=== PATIENT | female | born 1935 | race Caucasian/White ===

== ENCOUNTER 2018-01-25 16:14 | Emergency (ER) | payer MEDICARE, MEDICAID ==
[~2018-01-25] VITALS: Ht 162.6 cm; Wt 82.0 kg
[~2018-01-25 16:14] MED LIST: ASPI81TA52 PO; BUDE10.22 INH; BUPR150T8 PO; CHOL500049 PO; DOCU-28 PO; FERR325T28 PO; FLUO20CA39 PO; GABA-532 PO; LOSA25TA96 PO; MAGN400C PO; MULT-342 PO; NITR0.4T48 SL; OMEG-166 PO; OXYC5CAP19 PO; PRAM0.5T3 PO; RANO500T3 PO; SYN0.088T PO; TERI2.4P SUBCUT; ZOLP5TAB8 PO; [UNRECOGNIZED DRUG - OTHER] PO
[2018-01-25] MEDS ORDERED: ondansetron 4mg rapidly disintigrating tab PO ONE (17:10)
[2018-01-25] MEDS ORDERED: morphine 10mg/ml inj. IM ONE ×2 (17:10→17:55)
[2018-01-25 19:23] VITALS: BP 97/54
== END 2018-01-25 21:20 | disposition home or self-care (01) ==
LOC: ER 16:14
DX: G89.29 Other chronic pain (principal); M25.551 Pain in right hip; I10 Essential (primary) hypertension; J44.9 Chronic obstructive pulmonary disease, unspecified; Z86.711 Personal history of pulmonary embolism; Z98.890 Other specified postprocedural states; Z88.8 Allergy status to other drugs, medicaments and biological substances; Z79.82 Long term (current) use of aspirin; Z79.899 Other long term (current) drug therapy
CPT/HCPCS: 93005; 96372; 99284; J2270

== ENCOUNTER 2018-01-29 08:43 | Inpatient (IN) | payer MEDICARE, MEDICAID ==
[~2018-01-29] VITALS: Ht 162.6 cm; Wt 91.7 kg
[2018-01-29] MEDS ORDERED: morphine 4 MG/ML inj SYRINge IV ONE (08:55)
[2018-01-29] MEDS ORDERED: ondansetron/PF 4mg/2ml inj IV ONE (08:55)
[2018-01-29] MEDS ORDERED: ONDA4TAB9 PO (11:40)
[2018-01-29] MEDS ORDERED: HYDR-3965 PO (11:40)
[2018-01-29 12:45] LABS: BASOPHILS % (AUTO) 0.1 % (0-1); EOSINOPHILS # (AUTO) 0.3 X10'3 (0-0.9); EOSINOPHILS % (AUTO) 2.5 % (0-6); HEMOGLOBIN 12.7 g/dl (12.0-16.0); LYMPHOCYTES # (AUTO) 0.9 X10'3 (1.1-4.8); LYMPHOCYTES % (AUTO) 6.9 % (21-51); MEAN CORPUSCULAR HEMOGLOBIN 28.9 PG (27.0-31.0); MEAN CORPUSCULAR HGB CONC 32.6 % (33.0-36.5); MEAN CORPUSCULAR VOLUME 88.7 FL (78-98); MEAN PLATELET VOLUME 6.8 FL (7.4-10.4); MONOCYTES # (AUTO) 0.6 X10'3 (0-0.9); MONOCYTES % (AUTO) 4.7 % (2-12); NEUTROPHILS # (AUTO) 11.6 X10'3 (1.8-7.7); NEUTROPHILS % (AUTO) 85.8 % (42-75); PLATELET COUNT 316 X10'3 (140-440); RED BLOOD COUNT 4.39 X10'6 (4.20-5.60); RED CELL DISTRIBUTION WIDTH 15.9 % (11.5-14.5); WHITE BLOOD COUNT 13.6 X10'3 (4.5-11.0)
[2018-01-29 13:07] LABS: ALANINE AMINOTRANSFERASE 20 U/L (12-78); ALBUMIN 2.1 G/DL (3.4-5.0); ALBUMIN/GLOBULIN RATIO 0.4 (1.1-1.5); ALKALINE PHOSPHATASE 96 IU/L (46-116); ANION GAP 12 (8-16); ASPARTATE AMINO TRANSFERASE 21 U/L (10-37); BILIRUBIN,TOTAL 0.3 MG/DL (0.1-1.0); BLOOD UREA NITROGEN 85 MG/DL (7-18); BUN/CREATININE RATIO 29.6 (6.6-38.0); CALCIUM 9.3 MG/DL (8.5-10.1); CHLORIDE 94 MMOL/L (99-107); CREATININE 2.87 MG/DL (0.40-0.90); GLUCOSE 86 MG/DL (70-104); POTASSIUM 4.8 MMOL/L (3.5-5.1); SODIUM 130 MMOL/L (135-145); TOTAL PROTEIN 7.5 G/DL (6.4-8.2); eGFR 16 ML/MIN
[2018-01-29] MEDS ORDERED: magnesium hydroxide 30ml (MOM) UD suspension PO PRN (13:40)
[2018-01-29] MEDS ORDERED: potassium Cl 20 mEq SR tablet PO PRN ×2 (13:40)
[2018-01-29] MEDS ORDERED: mag hydrox/Alum hydrox/simeth 30ml oral suspension PO PRN (13:40)
[2018-01-29] MEDS ORDERED: magnesium 4gm in 100ml NS 100 ML IV PRN (13:40)
[2018-01-29] MEDS ORDERED: potassium Cl 40MEQ/NS 500ml 500 ML IV PRN ×2 (13:40)
[2018-01-29] MEDS ORDERED: magnesium 1gm/100ml D5W IVPB 100 ML IV PRN (13:40)
[2018-01-29] MEDS: HYDROmorphone 1 mg/ml syringe IV PRN ×3 (15:08→22:56)
[2018-01-29] MEDS: normal saline 1000ml 1,000 ML IV SCH (15:15)
[2018-01-29 16:13] LABS: CLARITY,URINE SLIGHTLY CLOUDY (Clear); COLOR,URINE YELLOW (Yellow); GLUCOSE, URINE NEGATIVE (Neg); KETONES,URINE NEGATIVE (Neg); LEUKOCYTE ESTERASE ,URINE NEGATIVE (Neg); NITRITES, URINE NEGATIVE (Neg); OCCULT BLOOD,URINE NEGATIVE (Neg); PH,URINE 5.5 (4.8-8.0); PROTEIN,URINE TRACE mg/dl (Neg); UROBILINOGEN,URINE 0.2 E.U/dL (0.2-1.0)
[2018-01-29 16:14] LABS: UA COLLECTION TYPE FOLEY CATH
[2018-01-29 16:23] LABS: BACTERIA,URINE FEW /HPF (Neg); RBC,URINE NONE SEEN /HPF (0-2)
[2018-01-29 16:24] LABS: CELLULAR CAST 0-4 /LPF (NEGATIVE); SQUAMOUS EPITHELIAL CELL,UR FEW /LPF (FEW); WBC CLUMPS,URINE FEW /HPF (NEGATIVE)
[2018-01-29] MEDS ORDERED: non-formulary drug (Cholecalciferol (Vitamin D3) (Vitamin D3) 1 CAP) PO SCH (18:55)
[2018-01-29] MEDS ORDERED: nitroGLYCERIN 0.4mg SUBLingual tab SL PRN (18:55)
[2018-01-29] MEDS ORDERED: docusate sod 100mg capsule PO PRN (18:55)
[2018-01-29] MEDS ORDERED: non-formulary drug (Budesonide/Formoterol Fumarate (Symbicort 80-4.5 Mcg Inhaler) 2 PUFFS) INH SCH (20:00)
[2018-01-29] MEDS ORDERED: PRAMIPEXOLE DI HCL 0.5 MG PO SCH (20:00)
[2018-01-29] MEDS: pramipexole 0.25mg tablet PO SCH (20:54)
[2018-01-29] MEDS: heparin, porcine 5000 units/ml vial SQ SCH (20:55)
[2018-01-29] MEDS: buPROPion SR 150mg tablet PO SCH (20:55)
[2018-01-29] MEDS: ferrous sulfate 325mg tablet PO SCH (20:55)
[2018-01-29] MEDS: ranolazine 500mg SR tablet (Q12H) PO SCH (20:56)
[2018-01-29] MEDS: losartan 50mg tablet PO SCH (21:00)
[2018-01-29 22:00] VITALS: BP 106/46
[2018-01-29] MEDS: BUDESONIDE 0.25 MG/2 ML AMPUL.NEB IH SCH (23:24)
[2018-01-29] MEDS: ipratropium/albuterol 3ml nebule NEB PRN (23:25)
[2018-01-30] MEDS ORDERED: naloxone 0.4 mg/ml inj ONE (00:44)
[2018-01-30] MEDS ORDERED: naloxone 0.4 mg/ml inj IV ONE (00:45)
[2018-01-30 00:51] LABS: ABG BASE EXCESS -6.5 mmol/L (-2.0-3.0); ABG HCO3 21.3 mmol/L (22.0-26.0); ABG OXYGEN SATURATION 88.8 % (95-98); ABG PCO2 (T) 50.5 mmHg (32.0-45.0); ABG PO2 (T) 60.5 mmHg (83-108); FCOHb 0.7 % (0.5-1.5); FLOW 6 L/min; FMetHb 0.2 % (0.3-1.12); PATIENT TEMPERATURE 36.5; TOTAL HEMOGLOBIN 12.8 G/dl (12.0-16.0)
[2018-01-30] MEDS: normal saline 1000ml 1,000 ML IV SCH ×2 (00:54→09:36)
[2018-01-30 03:00] VITALS: BP 102/48
[2018-01-30] MEDS: HYDROmorphone 1 mg/ml syringe IV PRN ×6 (03:33→20:20)
[2018-01-30 04:01] LABS: ABG BASE EXCESS -4.6 mmol/L (-2.0-3.0); ABG HCO3 22.1 mmol/L (22.0-26.0); ABG OXYGEN SATURATION 94.9 % (95-98); ABG PCO2 (T) 47.3 mmHg (32.0-45.0); ABG PH (T) 7.287 (7.350-7.450); ABG PO2 (T) 78.6 mmHg (83-108); FCOHb 0.4 % (0.5-1.5); FMetHb 0.1 % (0.3-1.12); FO2Hb 94.4 % (94-100); MINUTE VOLUME 8 L/min; PATIENT TEMPERATURE 36.9; RESPIRATORY RATE 14 b/min; RESPIRATORY RATE (OBSERVED) 13 b/min; TIDAL VOLUME 517 mL; TOTAL HEMOGLOBIN 12.3 G/dl (12.0-16.0)
[2018-01-30 06:36] LABS: BASOPHILS % (AUTO) 0.1 % (0-1); EOSINOPHILS # (AUTO) 0.1 X10'3 (0-0.9); EOSINOPHILS % (AUTO) 0.7 % (0-6); HEMATOCRIT 34.3 % (35.0-45.0); HEMOGLOBIN 11.2 g/dl (12.0-16.0); LYMPHOCYTES # (AUTO) 0.6 X10'3 (1.1-4.8); LYMPHOCYTES % (AUTO) 4.2 % (21-51); MEAN CORPUSCULAR HEMOGLOBIN 28.9 PG (27.0-31.0); MEAN CORPUSCULAR HGB CONC 32.6 % (33.0-36.5); MEAN CORPUSCULAR VOLUME 88.8 FL (78-98); MEAN PLATELET VOLUME 6.4 FL (7.4-10.4); MONOCYTES # (AUTO) 0.7 X10'3 (0-0.9); MONOCYTES % (AUTO) 4.7 % (2-12); NEUTROPHILS # (AUTO) 12.6 X10'3 (1.8-7.7); NEUTROPHILS % (AUTO) 90.3 % (42-75); PLATELET COUNT 308 X10'3 (140-440); RED BLOOD COUNT 3.86 X10'6 (4.20-5.60); RED CELL DISTRIBUTION WIDTH 15.6 % (11.5-14.5); WHITE BLOOD COUNT 13.9 X10'3 (4.5-11.0)
[2018-01-30 06:55] LABS: ANISOCYTOSIS 1+; GIANT PLATELET FEW; PLATELET ESTIMATE NORMAL; TOTAL CELLS COUNTED 100
[2018-01-30 06:56] LABS: TOXIC GRANULATION 1+
[2018-01-30 06:58] LABS: ALANINE AMINOTRANSFERASE 14 U/L (12-78); ALBUMIN 1.8 G/DL (3.4-5.0); ALBUMIN/GLOBULIN RATIO 0.4 (1.1-1.5); ALKALINE PHOSPHATASE 72 IU/L (46-116); ANION GAP 10 (8-16); ASPARTATE AMINO TRANSFERASE 15 U/L (10-37); BILIRUBIN,TOTAL 0.3 MG/DL (0.1-1.0); BLOOD UREA NITROGEN 82 MG/DL (7-18); BUN/CREATININE RATIO 35.5 (6.6-38.0); CALCIUM 8.5 MG/DL (8.5-10.1); CHLORIDE 101 MMOL/L (99-107); CHOL/HDL RATIO 4.8 (0.00-4.99); CHOLESTEROL 110 MG/DL (0-200); CREATININE 2.31 MG/DL (0.40-0.90); GLUCOSE 89 MG/DL (70-104); HDL CHOLESTEROL 23 MG/DL (35-60); LDL CHOLESTEROL 65 MG/DL (50-100); MAGNESIUM 2.2 MG/DL (1.5-2.4); POTASSIUM 4.7 MMOL/L (3.5-5.1); SODIUM 133 MMOL/L (135-145); TOTAL CARBON DIOXIDE 22.1 MMOL/L (24-32); TOTAL PROTEIN 6.4 G/DL (6.4-8.2); TRIGLYCERIDES 131 MG/DL (20-135); eGFR 20 ML/MIN
[2018-01-30] MEDS: levoTHYROXINE 100mcg tablet PO SCH (07:21)
[2018-01-30] MEDS: multivitamins, therapeutics tablet PO SCH (07:21)
[2018-01-30] MEDS: ferrous sulfate 325mg tablet PO SCH ×2 (07:21→20:12)
[2018-01-30] MEDS: heparin, porcine 5000 units/ml vial SQ SCH ×2 (07:21→20:13)
[2018-01-30] MEDS: pramipexole 0.25mg tablet PO SCH ×2 (07:22→20:12)
[2018-01-30] MEDS: ranolazine 500mg SR tablet (Q12H) PO SCH ×2 (07:22→20:13)
[2018-01-30] MEDS: BUDESONIDE 0.25 MG/2 ML AMPUL.NEB IH SCH ×2 (07:35→21:00)
[2018-01-30] MEDS: albuterol 2.5 MG/3 ML nebule NEB SCH ×4 (07:35→21:00)
[2018-01-30] MEDS ORDERED: non-formulary drug (Multivitamins (Multi-Day Vitamin) 1 EACH) PO SCH (08:00)
[2018-01-30] MEDS: K and/or MAG REPLACEMENT MC SCH (08:00)
[2018-01-30] MEDS ORDERED: OMEGA-3/DHA/EPA/FISH OIL 1 EACH CAPSULE.DR PO SCH (08:00)
[2018-01-30 15:00] VITALS: BP 154/60
[2018-01-30] MEDS ORDERED: HYDROmorphone 1 mg/ml syringe IV STA (15:43)
[2018-01-30] MEDS ORDERED: LORazepam 2 mg/ml vial IV STA (15:51)
[2018-01-30] MEDS ORDERED: normal saline 1000ml 1,000 ML IV SCH (15:55)
[2018-01-30] MEDS ORDERED: vancomycin/NS 1 GM ADD-VANTAGE 250 ML IV ONE (18:00)
[2018-01-30 19:00] VITALS: BP 135/59
[2018-01-30] MEDS: buPROPion SR 150mg tablet PO SCH (22:24)
[2018-01-30] MEDS: losartan 50mg tablet PO SCH (22:27)
[2018-01-30] MEDS: cefepime 2g/NS 100ml ADVANTAGE 100 ML IV SCH (22:32)
[2018-01-30 23:00] VITALS: BP 144/62
[2018-01-31] VITALS (16 sets, daily range): BP systolic 118–220; BP diastolic 52–107
[2018-01-31] MEDS: HYDROmorphone 1 mg/ml syringe IV PRN ×4 (02:23→16:12)
[2018-01-31 03:03] LABS: UREA NITROGEN 24HR,URINE 19.6 GM/24HR (7-20)
[2018-01-31 05:34] LABS: BASOPHILS % (AUTO) 0 % (0-1); EOSINOPHILS # (AUTO) 0.1 X10'3 (0-0.9); EOSINOPHILS % (AUTO) 0.8 % (0-6); HEMATOCRIT 34.7 % (35.0-45.0); HEMOGLOBIN 11.6 g/dl (12.0-16.0); LYMPHOCYTES # (AUTO) 0.5 X10'3 (1.1-4.8); LYMPHOCYTES % (AUTO) 3.5 % (21-51); MEAN CORPUSCULAR HEMOGLOBIN 29.3 PG (27.0-31.0); MEAN CORPUSCULAR HGB CONC 33.3 % (33.0-36.5); MEAN CORPUSCULAR VOLUME 88.1 FL (78-98); MEAN PLATELET VOLUME 6.2 FL (7.4-10.4); MONOCYTES # (AUTO) 0.4 X10'3 (0-0.9); MONOCYTES % (AUTO) 3.2 % (2-12); NEUTROPHILS # (AUTO) 12.7 X10'3 (1.8-7.7); NEUTROPHILS % (AUTO) 92.5 % (42-75); PLATELET COUNT 280 X10'3 (140-440); RED BLOOD COUNT 3.94 X10'6 (4.20-5.60); RED CELL DISTRIBUTION WIDTH 15.3 % (11.5-14.5); WHITE BLOOD COUNT 13.7 X10'3 (4.5-11.0)
[2018-01-31 05:46] LABS: ALANINE AMINOTRANSFERASE 15 U/L (12-78); ALBUMIN 1.7 G/DL (3.4-5.0); ALBUMIN/GLOBULIN RATIO 0.4 (1.1-1.5); ALKALINE PHOSPHATASE 76 IU/L (46-116); ANION GAP 9 (8-16); ASPARTATE AMINO TRANSFERASE 14 U/L (10-37); BILIRUBIN,TOTAL 0.4 MG/DL (0.1-1.0); BLOOD UREA NITROGEN 42 MG/DL (7-18); CHLORIDE 106 MMOL/L (99-107); CREATININE 0.84 MG/DL (0.40-0.90); GLUCOSE 113 MG/DL (70-104); MAGNESIUM 1.7 MG/DL (1.5-2.4); POTASSIUM 4.1 MMOL/L (3.5-5.1); SODIUM 138 MMOL/L (135-145); TOTAL CARBON DIOXIDE 23.3 MMOL/L (24-32); TOTAL PROTEIN 6.3 G/DL (6.4-8.2); eGFR 65 ML/MIN
[2018-01-31 06:47] LABS: BANDS% (MANUAL) 8 % (0-10); EOSINOPHILS % (MANUAL) 1 % (0-6); LYMPHOCYTES % (MANUAL) 2 % (21-51); MONOCYTES % (MANUAL) 6 % (2-12); NEUTROPHILS % (MANUAL) 83 % (42-75); PLATELET ESTIMATE NORMAL; TOTAL CELLS COUNTED 100
[2018-01-31 06:48] LABS: TOXIC GRANULATION 1+
[2018-01-31] MEDS: K and/or MAG REPLACEMENT MC SCH (08:00)
[2018-01-31] MEDS: normal saline 1000ml 1,000 ML IV SCH (08:20)
[2018-01-31] MEDS: BUDESONIDE 0.25 MG/2 ML AMPUL.NEB IH SCH ×2 (08:25→19:25)
[2018-01-31] MEDS: albuterol 2.5 MG/3 ML nebule NEB SCH ×4 (08:26→19:26)
[2018-01-31] MEDS: ferrous sulfate 325mg tablet PO SCH ×2 (08:55→20:00)
[2018-01-31] MEDS: multivitamins, therapeutics tablet PO SCH (08:55)
[2018-01-31] MEDS: pramipexole 0.25mg tablet PO SCH ×2 (08:55→20:00)
[2018-01-31] MEDS: levoTHYROXINE 100mcg tablet PO SCH (08:55)
[2018-01-31] MEDS: heparin, porcine 5000 units/ml vial SQ SCH (08:55)
[2018-01-31] MEDS: ranolazine 500mg SR tablet (Q12H) PO SCH ×2 (08:55→20:00)
[2018-01-31] MEDS: cefepime 2g/NS 100ml ADVANTAGE 100 ML IV SCH (08:56)
[2018-01-31] MEDS ORDERED: ringers solution, lacted 1,000 ML IV ONE ×2 (09:39→15:32)
[2018-01-31] MEDS: vancomycin inj 1,250 MG in normal saline 250ml IV soln 250 ML IV SCH ×2 (10:15→21:22)
[2018-01-31 14:53] LABS: BASOPHILS % (AUTO) 0 % (0-1); EOSINOPHILS # (AUTO) 0.1 X10'3 (0-0.9); EOSINOPHILS % (AUTO) 0.6 % (0-6); LYMPHOCYTES # (AUTO) 0.5 X10'3 (1.1-4.8); LYMPHOCYTES % (AUTO) 3.1 % (21-51); MEAN CORPUSCULAR HEMOGLOBIN 29.2 PG (27.0-31.0); MEAN CORPUSCULAR HGB CONC 33.3 % (33.0-36.5); MEAN CORPUSCULAR VOLUME 87.6 FL (78-98); MEAN PLATELET VOLUME 5.9 FL (7.4-10.4); MONOCYTES # (AUTO) 0.5 X10'3 (0-0.9); MONOCYTES % (AUTO) 2.8 % (2-12); NEUTROPHILS # (AUTO) 15.2 X10'3 (1.8-7.7); NEUTROPHILS % (AUTO) 93.5 % (42-75); PRE OP HEMATOCRIT 35.5 % (35.0-45.0); PRE OP HEMOGLOBIN 11.8 g/dL (12.0-16.0); PRE OP PLATELET COUNT 303 X10'3 (140-440); RED BLOOD COUNT 4.05 X10'6 (4.20-5.60); RED CELL DISTRIBUTION WIDTH 15.4 % (11.5-14.5)
[2018-01-31 15:02] LABS: INR 1.3 INR; PARTIAL THROMBOPLASTIN TIME 32 SECONDS (22-32); PROTHROMBIN TIME 13.2 SECONDS (9.0-12.0)
[2018-01-31 15:03] LABS: ALBUMIN 1.7 G/DL (3.4-5.0); BLOOD UREA NITROGEN 29 MG/DL (7-18); BUN/CREATININE RATIO 40.3 (6.6-38.0); CALCIUM 9.2 MG/DL (8.5-10.1); CHLORIDE 105 MMOL/L (99-107); CREATININE 0.72 MG/DL (0.40-0.90); PRE OP ANION GAP 9 (8-16); PRE OP GLUCOSE 102 MG/DL (70-104); PRE OP POTASSIUM 3.7 MMOL/L (3.4-5.1); PRE OP SODIUM 139 MMOL/L (135-145); TOTAL CARBON DIOXIDE 25.1 MMOL/L (24-32); eGFR 78 ML/MIN
[2018-01-31] MEDS ORDERED: MIDAZolam 1mg/ml 10ml vial ONE (16:39)
[2018-01-31] MEDS ORDERED: fentaNYL /PF 50mcg/ml 5ml ampule ONE (16:40)
[2018-01-31] MEDS ORDERED: etomidate 2mg/ml inj. ONE (16:41)
[2018-01-31] MEDS ORDERED: rocuronium 10mg/ml inj IV ONE (16:44)
[2018-01-31] MEDS ORDERED: LIDOcaine 1%/PF 5ML 10 MG/ML VIAL ONE (16:51)
[2018-01-31] MEDS ORDERED: ringers solution, lacted 1,000 ML IV SCH ×2 (17:03→19:13)
[2018-01-31] MEDS ORDERED: morphine 4 MG/ML inj SYRINge IV PRN ×2 (17:05)
[2018-01-31] MEDS ORDERED: ondansetron/PF 4mg/2ml inj IV PRN ×2 (17:05→19:15)
[2018-01-31] MEDS ORDERED: FENTANYL-0.9 % NACL/PF 100 ML IV PRN (17:05)
[2018-01-31] MEDS ORDERED: fentaNYL/PF 50MCG/1 ML 2ML syringe IV PRN ×4 (17:05→19:15)
[2018-01-31] MEDS ORDERED: sevoflurane 250ml liquid IH ONE (17:20)
[2018-01-31] MEDS ORDERED: dexamethasone sod phosphate 4mg/ml inj. ONE (18:14)
[2018-01-31] MEDS ORDERED: ondansetron/PF 4mg/2ml inj ONE (18:15)
[2018-01-31] MEDS ORDERED: vancomycin/NS 1 GM ADD-VANTAGE 250 ML X 1 DOSE IV SCH (19:00)
[2018-01-31] MEDS: midazolam 100mg in NS 100ml 100 ML IV PRN (19:00)
[2018-01-31] MEDS ORDERED: labetalol 20mg/4ml (5mg/ml) syringe IV ONE (19:11)
[2018-01-31] MEDS ORDERED: hydrALAZINE 20mg/ml inj. IV PRN (19:15)
[2018-01-31] MEDS ORDERED: labetalol 20mg/4ml (5mg/ml) syringe IV PRN (19:15)
[2018-01-31 19:46] LABS: ABG BASE EXCESS -3.9 mmol/L (-2.0-3.0); ABG HCO3 21.9 mmol/L (22.0-26.0); ABG OXYGEN SATURATION 96.3 % (95-98); ABG PH (T) 7.341 (7.350-7.450); ABG PO2 (T) 80.6 mmHg (83-108); FCOHb 0.8 % (0.5-1.5); FMetHb 0.1 % (0.3-1.12); FO2Hb 95.4 % (94-100); MINUTE VOLUME 7 L/min; PATIENT TEMPERATURE 36.2; PEEP 5 cm H2O; RESPIRATORY RATE 10 b/min; RESPIRATORY RATE (OBSERVED) 11 b/min; TIDAL VOLUME 600 mL; TOTAL HEMOGLOBIN 13.1 G/dl (12.0-16.0)
[2018-01-31] MEDS: lactobacillus rhamnosus 10,000 MMU CELLS/CAPSULE PO SCH (20:00)
[2018-01-31 20:09] LABS: BASOPHILS % (AUTO) 0 % (0-1); EOSINOPHILS % (AUTO) 0.2 % (0-6); HEMATOCRIT 37.5 % (35.0-45.0); HEMOGLOBIN 12.1 g/dl (12.0-16.0); LYMPHOCYTES # (AUTO) 0.5 X10'3 (1.1-4.8); LYMPHOCYTES % (AUTO) 2.5 % (21-51); MEAN CORPUSCULAR HEMOGLOBIN 28.4 PG (27.0-31.0); MEAN CORPUSCULAR HGB CONC 32.2 % (33.0-36.5); MEAN CORPUSCULAR VOLUME 88.2 FL (78-98); MONOCYTES # (AUTO) 0.1 X10'3 (0-0.9); MONOCYTES % (AUTO) 0.3 % (2-12); NEUTROPHILS # (AUTO) 18.5 X10'3 (1.8-7.7); PLATELET COUNT 341 X10'3 (140-440); RED BLOOD COUNT 4.26 X10'6 (4.20-5.60); RED CELL DISTRIBUTION WIDTH 15.6 % (11.5-14.5); WHITE BLOOD COUNT 19.1 X10'3 (4.5-11.0)
[2018-01-31 20:26] LABS: ALANINE AMINOTRANSFERASE 13 U/L (12-78); ALBUMIN 1.6 G/DL (3.4-5.0); ALBUMIN/GLOBULIN RATIO 0.3 (1.1-1.5); ALKALINE PHOSPHATASE 91 IU/L (46-116); ANION GAP 10 (8-16); ASPARTATE AMINO TRANSFERASE 19 U/L (10-37); BILIRUBIN,TOTAL 0.6 MG/DL (0.1-1.0); BLOOD UREA NITROGEN 24 MG/DL (7-18); BUN/CREATININE RATIO 35.3 (6.6-38.0); CHLORIDE 104 MMOL/L (99-107); CREATININE 0.68 MG/DL (0.40-0.90); GLUCOSE 127 MG/DL (70-104); MAGNESIUM 1.2 MG/DL (1.5-2.4); POTASSIUM 3.8 MMOL/L (3.5-5.1); SODIUM 139 MMOL/L (135-145); TOTAL CARBON DIOXIDE 24.7 MMOL/L (24-32); TOTAL PROTEIN 6.4 G/DL (6.4-8.2); eGFR 83 ML/MIN
[2018-01-31 20:47] LABS: TOTAL CELLS COUNTED 100
[2018-01-31 20:48] LABS: PLATELET ESTIMATE NORMAL
[2018-01-31] MEDS: losartan 50mg tablet PO SCH (21:00)
[2018-01-31] MEDS: buPROPion SR 150mg tablet PO SCH (21:00)
[2018-02-01] VITALS (24 sets, daily range): BP systolic 97–157; BP diastolic 44–84
[2018-02-01] MEDS: normal saline 1000ml 1,000 ML IV SCH (01:00)
[2018-02-01 02:53] LABS: TOXIC GRANULATION 2+
[2018-02-01 03:08] LABS: BASOPHILS % (AUTO) 0 % (0-1); EOSINOPHILS % (AUTO) 0.1 % (0-6); HEMATOCRIT 34.2 % (35.0-45.0); HEMOGLOBIN 11.1 g/dl (12.0-16.0); LYMPHOCYTES # (AUTO) 0.3 X10'3 (1.1-4.8); LYMPHOCYTES % (AUTO) 1.6 % (21-51); MEAN CORPUSCULAR HEMOGLOBIN 28.6 PG (27.0-31.0); MEAN CORPUSCULAR HGB CONC 32.4 % (33.0-36.5); MEAN CORPUSCULAR VOLUME 88.3 FL (78-98); MONOCYTES # (AUTO) 0.2 X10'3 (0-0.9); MONOCYTES % (AUTO) 1.1 % (2-12); NEUTROPHILS # (AUTO) 21.4 X10'3 (1.8-7.7); NEUTROPHILS % (AUTO) 97.2 % (42-75); PLATELET COUNT 321 X10'3 (140-440); RED BLOOD COUNT 3.88 X10'6 (4.20-5.60); RED CELL DISTRIBUTION WIDTH 15.6 % (11.5-14.5)
[2018-02-01 03:29] LABS: ALANINE AMINOTRANSFERASE 12 U/L (12-78); ALBUMIN 1.4 G/DL (3.4-5.0); ALBUMIN/GLOBULIN RATIO 0.3 (1.1-1.5); ALKALINE PHOSPHATASE 73 IU/L (46-116); ANION GAP 10 (8-16); ASPARTATE AMINO TRANSFERASE 14 U/L (10-37); BILIRUBIN,TOTAL 0.5 MG/DL (0.1-1.0); BLOOD UREA NITROGEN 26 MG/DL (7-18); BUN/CREATININE RATIO 37.7 (6.6-38.0); CALCIUM 8.8 MG/DL (8.5-10.1); CHLORIDE 106 MMOL/L (99-107); CREATININE 0.69 MG/DL (0.40-0.90); GLUCOSE 131 MG/DL (70-104); MAGNESIUM 1.3 MG/DL (1.5-2.4); POTASSIUM 3.9 MMOL/L (3.5-5.1); SODIUM 140 MMOL/L (135-145); TOTAL CARBON DIOXIDE 24.2 MMOL/L (24-32); TOTAL PROTEIN 5.9 G/DL (6.4-8.2); eGFR 82 ML/MIN
[2018-02-01 03:35] LABS: TOTAL CELLS COUNTED 100; TOXIC GRANULATION 2+
[2018-02-01 03:36] LABS: PLATELET ESTIMATE NORMAL
[2018-02-01 03:46] LABS: ABG BASE EXCESS -4.6 mmol/L (-2.0-3.0); ABG HCO3 19.9 mmol/L (22.0-26.0); ABG OXYGEN SATURATION 96.5 % (95-98); ABG PCO2 (T) 34.3 mmHg (32.0-45.0); ABG PO2 (T) 81.5 mmHg (83-108); FCOHb 0.1 % (0.5-1.5); FMetHb 0.3 % (0.3-1.12); FO2Hb 96.1 % (94-100); MINUTE VOLUME 9 L/min; PATIENT TEMPERATURE 36.4; PEEP 5 cm H2O; RESPIRATORY RATE 15 b/min; RESPIRATORY RATE (OBSERVED) 19 b/min; TIDAL VOLUME 400 mL; TOTAL HEMOGLOBIN 11.9 G/dl (12.0-16.0)
[2018-02-01] MEDS: albuterol 2.5 MG/3 ML nebule NEB SCH ×4 (06:48→19:47)
[2018-02-01] MEDS: BUDESONIDE 0.25 MG/2 ML AMPUL.NEB IH SCH ×2 (06:48→19:47)
[2018-02-01] MEDS: K and/or MAG REPLACEMENT MC SCH (06:59)
[2018-02-01] MEDS: ranolazine 500mg SR tablet (Q12H) PO SCH ×2 (07:10→19:35)
[2018-02-01] MEDS: pramipexole 0.25mg tablet PO SCH ×2 (08:00→19:35)
[2018-02-01] MEDS: levoTHYROXINE 100mcg tablet PO SCH (08:01)
[2018-02-01] MEDS: lactobacillus rhamnosus 10,000 MMU CELLS/CAPSULE PO SCH ×2 (08:01→19:34)
[2018-02-01] MEDS: multivitamins, therapeutics tablet PO SCH (08:01)
[2018-02-01] MEDS: ferrous sulfate 325mg tablet PO SCH ×2 (08:01→19:34)
[2018-02-01] MEDS: CefTRIAXone 2gm/D5W 50ml 50 ML IV SCH (09:49)
[2018-02-01] MEDS: metroNIDAZOLE-Flagyl 500mg/NS 100 ML IV SCH ×3 (10:15→23:17)
[2018-02-01] MEDS: methylnaltrexone br 12mg/0.6ml inj***SubQ only SQ SCH (12:13)
[2018-02-01] MEDS: pantoprazole 40 MG vial IV SCH (12:13)
[2018-02-01] MEDS: vancomycin inj 1,250 MG in normal saline 250ml IV soln 250 ML IV SCH ×2 (12:14→20:21)
[2018-02-01] MEDS: enoxaparin 40mg/0.4ml syringe SQ SCH (12:14)
[2018-02-01] MEDS: Potassium Cl inj 40 MEQ in normal saline 1000ml 1,000 ML IV SCH ×2 (14:51→22:02)
[2018-02-01] MEDS: albumin (human) 25% 100ml IV 100 ML IV SCH (15:14)
[2018-02-01] MEDS: HYDROmorphone 1 mg/ml syringe IV PRN ×2 (17:23→21:46)
[2018-02-01] MEDS: losartan 50mg tablet PO SCH (19:36)
[2018-02-01] MEDS: buPROPion SR 150mg tablet PO SCH (19:36)
[2018-02-01] MEDS ORDERED: VANCOMYCIN LEVEL IV ONE (20:30)
[2018-02-01 21:25] LABS: ABG BASE EXCESS 0.1 mmol/L (-2.0-3.0); ABG HCO3 25.9 mmol/L (22.0-26.0); ABG OXYGEN SATURATION 90.5 % (95-98); ABG PH (T) 7.358 (7.350-7.450); ABG PO2 (T) 60.5 mmHg (83-108); ALLEN'S TEST Positive; FCOHb 0.2 % (0.5-1.5); FLOW 12 L/min; FMetHb 0.1 % (0.3-1.12); FO2Hb 90.2 % (94-100); PATIENT TEMPERATURE 36.9; TOTAL HEMOGLOBIN 11.3 G/dl (12.0-16.0)
[2018-02-02] VITALS (26 sets, daily range): BP systolic 119–199; BP diastolic 45–91
[2018-02-02] MEDS: albumin (human) 25% 100ml IV 100 ML IV SCH ×4 (00:45→16:42)
[2018-02-02] MEDS: HYDROmorphone 1 mg/ml syringe IV PRN ×4 (00:58→13:17)
[2018-02-02 05:53] LABS: BASOPHILS % (AUTO) 0 % (0-1); EOSINOPHILS % (AUTO) 0 % (0-6); HEMATOCRIT 29.5 % (35.0-45.0); HEMOGLOBIN 9.4 g/dl (12.0-16.0); LYMPHOCYTES # (AUTO) 0.5 X10'3 (1.1-4.8); LYMPHOCYTES % (AUTO) 2.8 % (21-51); MEAN CORPUSCULAR HEMOGLOBIN 28.5 PG (27.0-31.0); MEAN CORPUSCULAR VOLUME 89.1 FL (78-98); MEAN PLATELET VOLUME 6.1 FL (7.4-10.4); MONOCYTES # (AUTO) 0.4 X10'3 (0-0.9); MONOCYTES % (AUTO) 2.1 % (2-12); NEUTROPHILS # (AUTO) 17.3 X10'3 (1.8-7.7); NEUTROPHILS % (AUTO) 95.1 % (42-75); PLATELET COUNT 315 X10'3 (140-440); RED BLOOD COUNT 3.31 X10'6 (4.20-5.60); RED CELL DISTRIBUTION WIDTH 16.2 % (11.5-14.5); WHITE BLOOD COUNT 18.2 X10'3 (4.5-11.0)
[2018-02-02 06:04] LABS: ALANINE AMINOTRANSFERASE 13 U/L (12-78); ALBUMIN 2.3 G/DL (3.4-5.0); ALBUMIN/GLOBULIN RATIO 0.6 (1.1-1.5); ALKALINE PHOSPHATASE 86 IU/L (46-116); ANION GAP 7 (8-16); ASPARTATE AMINO TRANSFERASE 15 U/L (10-37); BILIRUBIN,TOTAL 0.5 MG/DL (0.1-1.0); BLOOD UREA NITROGEN 28 MG/DL (7-18); BUN/CREATININE RATIO 45.9 (6.6-38.0); CALCIUM 9.2 MG/DL (8.5-10.1); CHLORIDE 111 MMOL/L (99-107); CREATININE 0.61 MG/DL (0.40-0.90); GLUCOSE 123 MG/DL (70-104); MAGNESIUM 2.1 MG/DL (1.5-2.4); POTASSIUM 4.5 MMOL/L (3.5-5.1); SODIUM 146 MMOL/L (135-145); TOTAL CARBON DIOXIDE 28.5 MMOL/L (24-32); TOTAL PROTEIN 6.4 G/DL (6.4-8.2); VANCOMYCIN,RANDOM 26.1 UG/ML; eGFR > 90 ML/MIN
[2018-02-02] MEDS: K and/or MAG REPLACEMENT MC SCH (07:12)
[2018-02-02] MEDS: albuterol 2.5 MG/3 ML nebule NEB SCH ×4 (07:45→19:50)
[2018-02-02] MEDS: BUDESONIDE 0.25 MG/2 ML AMPUL.NEB IH SCH ×2 (07:45→19:50)
[2018-02-02] MEDS: enoxaparin 40mg/0.4ml syringe SQ SCH ×2 (08:00→08:10)
[2018-02-02] MEDS: CefTRIAXone 2gm/D5W 50ml 50 ML IV SCH (08:12)
[2018-02-02] MEDS: metroNIDAZOLE-Flagyl 500mg/NS 100 ML IV SCH ×3 (08:12→23:48)
[2018-02-02] MEDS: Potassium Cl inj 40 MEQ in normal saline 1000ml 1,000 ML IV SCH ×3 (08:14→20:42)
[2018-02-02] MEDS: pramipexole 0.25mg tablet PO SCH ×2 (08:15→20:40)
[2018-02-02] MEDS: pantoprazole 40 MG vial IV SCH (08:15)
[2018-02-02] MEDS: ferrous sulfate 325mg tablet PO SCH ×2 (08:16→20:40)
[2018-02-02] MEDS: levoTHYROXINE 100mcg tablet PO SCH (08:16)
[2018-02-02] MEDS: lactobacillus rhamnosus 10,000 MMU CELLS/CAPSULE PO SCH ×2 (08:16→20:40)
[2018-02-02] MEDS: multivitamins, therapeutics tablet PO SCH (08:16)
[2018-02-02] MEDS: ranolazine 500mg SR tablet (Q12H) PO SCH ×2 (08:18→20:00)
[2018-02-02] MEDS: vancomycin inj 1,250 MG in normal saline 250ml IV soln 250 ML IV SCH ×2 (09:12→20:43)
[2018-02-02] MEDS ORDERED: fentaNYL/PF 50MCG/1 ML 2ML syringe ONE ×2 (17:19→18:27)
[2018-02-02] MEDS ORDERED: midazolam 2 mg/2 ml injection ONE ×2 (17:19→18:46)
[2018-02-02] MEDS ORDERED: hydrALAZINE 20mg/ml inj. IV PRN (17:35)
[2018-02-02] MEDS ORDERED: ondansetron/PF 4mg/2ml inj IV PRN ×2 (17:35→18:25)
[2018-02-02] MEDS ORDERED: morphine 4 MG/ML inj SYRINge IV PRN ×2 (17:35)
[2018-02-02] MEDS ORDERED: fentaNYL/PF 50MCG/1 ML 2ML syringe IV PRN ×2 (17:35)
[2018-02-02] MEDS ORDERED: ringers solution, lacted 1,000 ML IV SCH ×2 (17:35→18:23)
[2018-02-02] MEDS ORDERED: labetalol 20mg/4ml (5mg/ml) syringe IV PRN (17:35)
[2018-02-02] MEDS ORDERED: rocuronium 10mg/ml inj IV ONE ×2 (17:39→18:26)
[2018-02-02] MEDS ORDERED: LIDOcaine 1%/PF 5ML 10 MG/ML VIAL ONE (17:39)
[2018-02-02] MEDS ORDERED: sevoflurane 250ml liquid IH ONE (17:39)
[2018-02-02] MEDS ORDERED: propofol 10mg/ml 20ml vial IV ONE (17:39)
[2018-02-02] MEDS ORDERED: dexamethasone sod phosphate 4mg/ml inj. ONE (18:06)
[2018-02-02] MEDS: FENTANYL-0.9 % NACL/PF 100 ML IV PRN (19:52)
[2018-02-02 20:05] LABS: ABG BASE EXCESS -2.1 mmol/L (-2.0-3.0); ABG HCO3 24.2 mmol/L (22.0-26.0); ABG OXYGEN SATURATION 98.7 % (95-98); ABG PCO2 (T) 48.5 mmHg (32.0-45.0); ABG PH (T) 7.316 (7.350-7.450); ABG PO2 (T) 141.6 mmHg (83-108); ALLEN'S TEST Positive; FCOHb 0.1 % (0.5-1.5); FMetHb 0.1 % (0.3-1.12); FO2Hb 98.5 % (94-100); MINUTE VOLUME 6 L/min; PATIENT TEMPERATURE 37.2; PEEP 5 cm H2O; RESPIRATORY RATE 16 b/min; RESPIRATORY RATE (OBSERVED) 16 b/min; TIDAL VOLUME 350 mL; TOTAL HEMOGLOBIN 10.9 G/dl (12.0-16.0)
[2018-02-02] MEDS: losartan 50mg tablet PO SCH (20:40)
[2018-02-02] MEDS: buPROPion SR 150mg tablet PO SCH (20:40)
[2018-02-03] VITALS (24 sets, daily range): BP systolic 114–178; BP diastolic 65–91
[2018-02-03] MEDS: albumin (human) 25% 100ml IV 100 ML IV SCH ×2 (02:07→08:33)
[2018-02-03 03:56] LABS: ABG BASE EXCESS 1.3 mmol/L (-2.0-3.0); ABG HCO3 26.6 mmol/L (22.0-26.0); ABG OXYGEN SATURATION 96.2 % (95-98); ABG PCO2 (T) 45.1 mmHg (32.0-45.0); ABG PH (T) 7.388 (7.350-7.450); ABG PO2 (T) 84.2 mmHg (83-108); ALLEN'S TEST Positive; FCOHb 0.3 % (0.5-1.5); FMetHb 0.1 % (0.3-1.12); FO2Hb 95.8 % (94-100); MINUTE VOLUME 7 L/min; PEEP 5 cm H2O; RESPIRATORY RATE 18 b/min; TIDAL VOLUME 350 mL; TOTAL HEMOGLOBIN 10.6 G/dl (12.0-16.0)
[2018-02-03] MEDS: albuterol 2.5 MG/3 ML nebule NEB SCH ×3 (07:32→20:01)
[2018-02-03] MEDS: BUDESONIDE 0.25 MG/2 ML AMPUL.NEB IH SCH ×2 (07:32→20:01)
[2018-02-03 07:51] LABS: BASOPHILS % (AUTO) 0 % (0-1); EOSINOPHILS # (AUTO) 0.3 X10'3 (0-0.9); EOSINOPHILS % (AUTO) 1.6 % (0-6); HEMATOCRIT 29.6 % (35.0-45.0); HEMOGLOBIN 9.5 g/dl (12.0-16.0); LYMPHOCYTES # (AUTO) 0.4 X10'3 (1.1-4.8); LYMPHOCYTES % (AUTO) 2.3 % (21-51); MEAN CORPUSCULAR HEMOGLOBIN 28.8 PG (27.0-31.0); MEAN CORPUSCULAR HGB CONC 32.1 % (33.0-36.5); MEAN CORPUSCULAR VOLUME 89.6 FL (78-98); MONOCYTES # (AUTO) 0.2 X10'3 (0-0.9); MONOCYTES % (AUTO) 1.3 % (2-12); NEUTROPHILS # (AUTO) 16.7 X10'3 (1.8-7.7); NEUTROPHILS % (AUTO) 94.8 % (42-75); PLATELET COUNT 234 X10'3 (140-440); RED CELL DISTRIBUTION WIDTH 15.4 % (11.5-14.5); WHITE BLOOD COUNT 17.6 X10'3 (4.5-11.0)
[2018-02-03] MEDS: ranolazine 500mg SR tablet (Q12H) PO SCH ×2 (08:00→20:00)
[2018-02-03 08:13] LABS: ALANINE AMINOTRANSFERASE 14 U/L (12-78); ALBUMIN 2.7 G/DL (3.4-5.0); ALBUMIN/GLOBULIN RATIO 0.8 (1.1-1.5); ALKALINE PHOSPHATASE 61 IU/L (46-116); ANION GAP 7 (8-16); ASPARTATE AMINO TRANSFERASE 15 U/L (10-37); BILIRUBIN,TOTAL 0.5 MG/DL (0.1-1.0); BLOOD UREA NITROGEN 21 MG/DL (7-18); BUN/CREATININE RATIO 39.6 (6.6-38.0); CALCIUM 8.8 MG/DL (8.5-10.1); CHLORIDE 111 MMOL/L (99-107); CREATININE 0.53 MG/DL (0.40-0.90); GLUCOSE 129 MG/DL (70-104); MAGNESIUM 1.6 MG/DL (1.5-2.4); POTASSIUM 4.4 MMOL/L (3.5-5.1); SODIUM 147 MMOL/L (135-145); TOTAL CARBON DIOXIDE 28.6 MMOL/L (24-32); TOTAL PROTEIN 6.3 G/DL (6.4-8.2); eGFR > 90 ML/MIN
[2018-02-03 08:20] LABS: ANISOCYTOSIS 1+; PLATELET ESTIMATE NORMAL; POLYCHROMASIA 1+; TOTAL CELLS COUNTED 100; TOXIC GRANULATION 1+
[2018-02-03] MEDS: CefTRIAXone 2gm/D5W 50ml 50 ML IV SCH (08:33)
[2018-02-03] MEDS: ferrous sulfate 325mg tablet PO SCH ×2 (08:33→20:43)
[2018-02-03] MEDS: lactobacillus rhamnosus 10,000 MMU CELLS/CAPSULE PO SCH ×2 (08:33→20:43)
[2018-02-03] MEDS: methylnaltrexone br 12mg/0.6ml inj***SubQ only SQ SCH (08:33)
[2018-02-03] MEDS: pantoprazole 40 MG vial IV SCH (08:33)
[2018-02-03] MEDS: levoTHYROXINE 100mcg tablet PO SCH (08:33)
[2018-02-03] MEDS: multivitamins, therapeutics tablet PO SCH (08:34)
[2018-02-03] MEDS: pramipexole 0.25mg tablet PO SCH ×2 (08:34→20:44)
[2018-02-03] MEDS: enoxaparin 40mg/0.4ml syringe SQ SCH (08:34)
[2018-02-03] MEDS: metroNIDAZOLE-Flagyl 500mg/NS 100 ML IV SCH (08:35)
[2018-02-03] MEDS: K and/or MAG REPLACEMENT MC SCH (08:56)
[2018-02-03] MEDS: vancomycin inj 1,250 MG in normal saline 250ml IV soln 250 ML IV SCH (09:00)
[2018-02-03 09:39] LABS: VANCOMYCIN,TROUGH 23.7 UG/ML (6.0-14.0)
[2018-02-03] MEDS: Potassium Cl inj 40 MEQ in normal saline 1000ml 1,000 ML IV SCH (10:40)
[2018-02-03] MEDS: FENTANYL-0.9 % NACL/PF 100 ML IV PRN (10:41)
[2018-02-03] MEDS: midazolam 100mg in NS 100ml 100 ML IV PRN (10:41)
[2018-02-03] MEDS: Potassium Cl inj 40 MEQ in dextrose 5%-water 980 ML IV SCH (14:07)
[2018-02-03 16:26] LABS: ALANINE AMINOTRANSFERASE 12 U/L (12-78); ALBUMIN 2.9 G/DL (3.4-5.0); ALBUMIN/GLOBULIN RATIO 0.8 (1.1-1.5); ALKALINE PHOSPHATASE 67 IU/L (46-116); ANION GAP 9 (8-16); ASPARTATE AMINO TRANSFERASE 10 U/L (10-37); BILIRUBIN,TOTAL 0.5 MG/DL (0.1-1.0); BLOOD UREA NITROGEN 16 MG/DL (7-18); BUN/CREATININE RATIO 27.1 (6.6-38.0); CHLORIDE 107 MMOL/L (99-107); CREATININE 0.59 MG/DL (0.40-0.90); GLUCOSE 131 MG/DL (70-104); POTASSIUM 3.7 MMOL/L (3.5-5.1); SODIUM 145 MMOL/L (135-145); TOTAL CARBON DIOXIDE 28.6 MMOL/L (24-32); TOTAL PROTEIN 6.5 G/DL (6.4-8.2); eGFR > 90 ML/MIN
[2018-02-03] MEDS ORDERED: potassium Cl 20 mEq SR tablet PO PRN ×2 (17:10)
[2018-02-03] MEDS ORDERED: amiodarone/D5 360MG/200ML BAG 200 ML IV SCH (17:28)
[2018-02-03] MEDS ORDERED: amiodarone/D5 360MG/200ML BAG 200 ML IV ONE (17:28)
[2018-02-03] MEDS ORDERED: amiodarone 150mg/dext, iso-os 100 ML IV ONE (17:30)
[2018-02-03 17:57] LABS: MAGNESIUM 1.4 MG/DL (1.5-2.4); PHOSPHORUS 1.5 MG/DL (2.3-4.5)
[2018-02-03] MEDS: amiodarone/D5 360MG/200ML BAG 200 ML IV SCH ×2 (20:42→22:57)
[2018-02-03] MEDS: vancomycin/NS 1 GM ADD-VANTAGE 250 ML IV SCH (20:43)
[2018-02-03] MEDS: losartan 50mg tablet PO SCH (20:44)
[2018-02-03] MEDS: buPROPion SR 150mg tablet PO SCH (21:00)
[2018-02-04] VITALS (23 sets, daily range): BP systolic 88–138; BP diastolic 45–72
[2018-02-04] MEDS: FENTANYL-0.9 % NACL/PF 100 ML IV PRN ×2 (03:07→18:48)
[2018-02-04 04:36] LABS: ABG BASE EXCESS 3.7 mmol/L (-2.0-3.0); ABG HCO3 28.4 mmol/L (22.0-26.0); ABG PH (T) 7.436 (7.350-7.450); ABG PO2 (T) 75.5 mmHg (83-108); FMetHb 0.3 % (0.3-1.12); FO2Hb 94.7 % (94-100); PATIENT TEMPERATURE 36.7; PEEP 5 cm H2O; RESPIRATORY RATE 18 b/min; TIDAL VOLUME 350 mL; TOTAL HEMOGLOBIN 9.7 G/dl (12.0-16.0)
[2018-02-04 06:27] LABS: BASOPHILS % (AUTO) 0.1 % (0-1); EOSINOPHILS # (AUTO) 0.5 X10'3 (0-0.9); EOSINOPHILS % (AUTO) 2.8 % (0-6); HEMATOCRIT 28.3 % (35.0-45.0); HEMOGLOBIN 9.2 g/dl (12.0-16.0); LYMPHOCYTES # (AUTO) 0.8 X10'3 (1.1-4.8); LYMPHOCYTES % (AUTO) 4.3 % (21-51); MEAN CORPUSCULAR HEMOGLOBIN 28.6 PG (27.0-31.0); MEAN CORPUSCULAR HGB CONC 32.3 % (33.0-36.5); MEAN CORPUSCULAR VOLUME 88.6 FL (78-98); MEAN PLATELET VOLUME 6.3 FL (7.4-10.4); MONOCYTES # (AUTO) 0.5 X10'3 (0-0.9); MONOCYTES % (AUTO) 2.7 % (2-12); NEUTROPHILS % (AUTO) 90.1 % (42-75); PLATELET COUNT 240 X10'3 (140-440); RED CELL DISTRIBUTION WIDTH 15.7 % (11.5-14.5); WHITE BLOOD COUNT 18.9 X10'3 (4.5-11.0)
[2018-02-04 06:40] LABS: ALANINE AMINOTRANSFERASE 12 U/L (12-78); ALBUMIN 2.4 G/DL (3.4-5.0); ALBUMIN/GLOBULIN RATIO 0.7 (1.1-1.5); ALKALINE PHOSPHATASE 56 IU/L (46-116); ANION GAP 4 (8-16); ASPARTATE AMINO TRANSFERASE 13 U/L (10-37); BILIRUBIN,TOTAL 0.4 MG/DL (0.1-1.0); BLOOD UREA NITROGEN 19 MG/DL (7-18); BUN/CREATININE RATIO 32.8 (6.6-38.0); CALCIUM 8.3 MG/DL (8.5-10.1); CHLORIDE 107 MMOL/L (99-107); CREATININE 0.58 MG/DL (0.40-0.90); GLUCOSE 140 MG/DL (70-104); MAGNESIUM 1.3 MG/DL (1.5-2.4); POTASSIUM 3.6 MMOL/L (3.5-5.1); SODIUM 143 MMOL/L (135-145); TOTAL CARBON DIOXIDE 31.6 MMOL/L (24-32); TOTAL PROTEIN 5.7 G/DL (6.4-8.2); eGFR > 90 ML/MIN
[2018-02-04 07:10] LABS: ANISOCYTOSIS 1+; PLATELET ESTIMATE NORMAL; POLYCHROMASIA FEW; TARGET CELLS FEW; TOTAL CELLS COUNTED 100
[2018-02-04] MEDS: albuterol 2.5 MG/3 ML nebule NEB SCH ×4 (07:29→19:25)
[2018-02-04] MEDS: Potassium Cl inj 40 MEQ in dextrose 5%-water 980 ML IV SCH (07:30)
[2018-02-04] MEDS: ranolazine 500mg SR tablet (Q12H) PO SCH ×2 (07:31→20:00)
[2018-02-04] MEDS: BUDESONIDE 0.25 MG/2 ML AMPUL.NEB IH SCH ×2 (07:36→19:25)
[2018-02-04] MEDS: K and/or MAG REPLACEMENT MC SCH ×2 (07:37→08:00)
[2018-02-04] MEDS: pantoprazole 40 MG vial IV SCH (08:37)
[2018-02-04] MEDS: pramipexole 0.25mg tablet PO SCH ×2 (08:37→20:19)
[2018-02-04] MEDS: multivitamins, therapeutics tablet PO SCH (08:37)
[2018-02-04] MEDS: ferrous sulfate 325mg tablet PO SCH ×2 (08:37→20:18)
[2018-02-04] MEDS: levoTHYROXINE 100mcg tablet PO SCH (08:37)
[2018-02-04] MEDS: lactobacillus rhamnosus 10,000 MMU CELLS/CAPSULE PO SCH ×2 (08:37→20:18)
[2018-02-04] MEDS: enoxaparin 40mg/0.4ml syringe SQ SCH (08:38)
[2018-02-04] MEDS: midazolam 100mg in NS 100ml 100 ML IV PRN (08:55)
[2018-02-04] MEDS: vancomycin/NS 1 GM ADD-VANTAGE 250 ML IV SCH ×2 (09:00→20:19)
[2018-02-04] MEDS ORDERED: magnesium 4gm in 100ml NS 100 ML IV ONE (12:50)
[2018-02-04] MEDS: amiodarone/D5 360MG/200ML BAG 200 ML IV SCH ×2 (12:53→22:07)
[2018-02-04] MEDS ORDERED: dexmedetomidin/NS 400mcg/100ml 100 ML IV SCH (15:25)
[2018-02-04] MEDS ORDERED: normal saline 1000ml 1,000 ML IV ONE (17:20)
[2018-02-04] MEDS ORDERED: normal saline 500ml IV soln 500 ML IV ONE (17:45)
[2018-02-04] MEDS: buPROPion SR 150mg tablet PO SCH (20:19)
[2018-02-04] MEDS: losartan 50mg tablet PO SCH (20:19)
[2018-02-04] MEDS ORDERED: albumin (Human) 5% 250ml 500 ML IV ONE (22:20)
[2018-02-05] VITALS (24 sets, daily range): BP systolic 90–155; BP diastolic 53–76
[2018-02-05] MEDS: amiodarone/D5 360MG/200ML BAG 200 ML IV SCH ×2 (00:05→06:09)
[2018-02-05] MEDS: Potassium Cl inj 40 MEQ in dextrose 5%-water 980 ML IV SCH ×2 (00:30→23:51)
[2018-02-05 04:01] LABS: ABG BASE EXCESS 4.1 mmol/L (-2.0-3.0); ABG HCO3 29.3 mmol/L (22.0-26.0); ABG PCO2 (T) 47.5 mmHg (32.0-45.0); ABG PH (T) 7.409 (7.350-7.450); FCOHb 0.3 % (0.5-1.5); FMetHb 0.3 % (0.3-1.12); FO2Hb 91.4 % (94-100); MINUTE VOLUME 8 L/min; PATIENT TEMPERATURE 37.4; PEEP 5 cm H2O; RESPIRATORY RATE 18 b/min; RESPIRATORY RATE (OBSERVED) 22 b/min; TIDAL VOLUME 350 mL
[2018-02-05 06:23] LABS: BASOPHILS % (AUTO) 0.1 % (0-1); EOSINOPHILS # (AUTO) 0.6 X10'3 (0-0.9); EOSINOPHILS % (AUTO) 3.1 % (0-6); HEMATOCRIT 28.8 % (35.0-45.0); HEMOGLOBIN 9.3 g/dl (12.0-16.0); LYMPHOCYTES # (AUTO) 0.8 X10'3 (1.1-4.8); LYMPHOCYTES % (AUTO) 4.6 % (21-51); MEAN CORPUSCULAR HEMOGLOBIN 28.8 PG (27.0-31.0); MEAN CORPUSCULAR HGB CONC 32.4 % (33.0-36.5); MEAN CORPUSCULAR VOLUME 88.9 FL (78-98); MEAN PLATELET VOLUME 6.5 FL (7.4-10.4); MONOCYTES # (AUTO) 0.6 X10'3 (0-0.9); MONOCYTES % (AUTO) 3.3 % (2-12); NEUTROPHILS # (AUTO) 15.9 X10'3 (1.8-7.7); NEUTROPHILS % (AUTO) 88.9 % (42-75); PLATELET COUNT 259 X10'3 (140-440); RED BLOOD COUNT 3.24 X10'6 (4.20-5.60); RED CELL DISTRIBUTION WIDTH 16.3 % (11.5-14.5); WHITE BLOOD COUNT 17.9 X10'3 (4.5-11.0)
[2018-02-05 06:34] LABS: ALANINE AMINOTRANSFERASE 11 U/L (12-78); ALBUMIN 2.1 G/DL (3.4-5.0); ALBUMIN/GLOBULIN RATIO 0.6 (1.1-1.5); ALKALINE PHOSPHATASE 65 IU/L (46-116); ANION GAP 4 (8-16); ASPARTATE AMINO TRANSFERASE 14 U/L (10-37); BILIRUBIN,TOTAL 0.4 MG/DL (0.1-1.0); BLOOD UREA NITROGEN 18 MG/DL (7-18); CALCIUM 8.3 MG/DL (8.5-10.1); CHLORIDE 105 MMOL/L (99-107); CREATININE 0.58 MG/DL (0.40-0.90); GLUCOSE 117 MG/DL (70-104); POTASSIUM 4.1 MMOL/L (3.5-5.1); PREALBUMIN 10.8 MG/DL (19-36); SODIUM 138 MMOL/L (135-145); TOTAL CARBON DIOXIDE 28.6 MMOL/L (24-32); TOTAL PROTEIN 5.7 G/DL (6.4-8.2); eGFR > 90 ML/MIN
[2018-02-05] MEDS: ranolazine 500mg SR tablet (Q12H) PO SCH ×2 (08:00→20:00)
[2018-02-05] MEDS: K and/or MAG REPLACEMENT MC SCH (08:00)
[2018-02-05] MEDS: BUDESONIDE 0.25 MG/2 ML AMPUL.NEB IH SCH ×2 (08:09→19:13)
[2018-02-05] MEDS: albuterol 2.5 MG/3 ML nebule NEB SCH ×4 (08:09→19:13)
[2018-02-05] MEDS ORDERED: VANCOMYCIN LEVEL IV ONE (08:30)
[2018-02-05] MEDS: pramipexole 0.25mg tablet PO SCH ×2 (08:36→20:29)
[2018-02-05] MEDS: pantoprazole 40 MG vial IV SCH (08:36)
[2018-02-05] MEDS: lactobacillus rhamnosus 10,000 MMU CELLS/CAPSULE PO SCH ×2 (08:36→20:29)
[2018-02-05] MEDS: ferrous sulfate 325mg tablet PO SCH ×2 (08:36→20:29)
[2018-02-05] MEDS: multivitamins, therapeutics tablet PO SCH (08:37)
[2018-02-05] MEDS: levoTHYROXINE 100mcg tablet PO SCH (08:37)
[2018-02-05] MEDS: enoxaparin 40mg/0.4ml syringe SQ SCH (08:37)
[2018-02-05] MEDS: methylnaltrexone br 12mg/0.6ml inj***SubQ only SQ SCH (08:37)
[2018-02-05 08:55] LABS: ANISOCYTOSIS 1+; PLATELET ESTIMATE NORMAL; TOTAL CELLS COUNTED 100
[2018-02-05] MEDS: vancomycin/NS 1 GM ADD-VANTAGE 250 ML IV SCH ×2 (09:17→20:29)
[2018-02-05] MEDS ORDERED: bisacodyl 10mg suppository rectal RC STA (11:27)
[2018-02-05] MEDS: amiodarone 200mg tablet PO SCH ×2 (12:11→20:29)
[2018-02-05] MEDS: FENTANYL-0.9 % NACL/PF 100 ML IV PRN (12:22)
[2018-02-05] MEDS: losartan 50mg tablet PO SCH (20:29)
[2018-02-05] MEDS: buPROPion SR 150mg tablet PO SCH (20:29)
[2018-02-06] VITALS (23 sets, daily range): BP systolic 129–175; BP diastolic 59–83
[2018-02-06 03:41] LABS: ABG BASE EXCESS 5.1 mmol/L (-2.0-3.0); ABG HCO3 29.8 mmol/L (22.0-26.0); ABG OXYGEN SATURATION 90.5 % (95-98); ABG PO2 (T) 58.7 mmHg (83-108); ALLEN'S TEST Positive; FCOHb 0.1 % (0.5-1.5); FMetHb 0.3 % (0.3-1.12); FO2Hb 90.1 % (94-100); MINUTE VOLUME 6 L/min; PATIENT TEMPERATURE 37.4; PEEP 5 cm H2O; RESPIRATORY RATE (OBSERVED) 12 b/min; TOTAL HEMOGLOBIN 10.3 G/dl (12.0-16.0)
[2018-02-06] MEDS: FENTANYL-0.9 % NACL/PF 100 ML IV PRN ×2 (05:46→21:08)
[2018-02-06] MEDS: BUDESONIDE 0.25 MG/2 ML AMPUL.NEB IH SCH ×2 (07:39→18:58)
[2018-02-06] MEDS: albuterol 2.5 MG/3 ML nebule NEB SCH ×4 (07:39→18:58)
[2018-02-06] MEDS: pantoprazole 40 MG vial IV SCH (07:50)
[2018-02-06] MEDS: pramipexole 0.25mg tablet PO SCH ×2 (07:50→21:07)
[2018-02-06] MEDS: levoTHYROXINE 100mcg tablet PO SCH (07:50)
[2018-02-06] MEDS: multivitamins, therapeutics tablet PO SCH (07:50)
[2018-02-06] MEDS: lactobacillus rhamnosus 10,000 MMU CELLS/CAPSULE PO SCH ×2 (07:50→21:07)
[2018-02-06] MEDS: enoxaparin 40mg/0.4ml syringe SQ SCH (07:50)
[2018-02-06] MEDS: ferrous sulfate 325mg tablet PO SCH ×2 (07:50→21:07)
[2018-02-06] MEDS: amiodarone 200mg tablet PO SCH ×2 (07:50→21:07)
[2018-02-06] MEDS: ranolazine 500mg SR tablet (Q12H) PO SCH ×2 (08:00→20:00)
[2018-02-06] MEDS: K and/or MAG REPLACEMENT MC SCH (08:00)
[2018-02-06 08:17] LABS: BASOPHILS % (AUTO) 0 % (0-1); EOSINOPHILS # (AUTO) 0.6 X10'3 (0-0.9); EOSINOPHILS % (AUTO) 3.1 % (0-6); HEMATOCRIT 28.2 % (35.0-45.0); HEMOGLOBIN 9.1 g/dl (12.0-16.0); LYMPHOCYTES # (AUTO) 0.9 X10'3 (1.1-4.8); LYMPHOCYTES % (AUTO) 4.7 % (21-51); MEAN CORPUSCULAR HEMOGLOBIN 28.6 PG (27.0-31.0); MEAN CORPUSCULAR HGB CONC 32.4 % (33.0-36.5); MEAN CORPUSCULAR VOLUME 88.4 FL (78-98); MEAN PLATELET VOLUME 6.4 FL (7.4-10.4); MONOCYTES # (AUTO) 0.6 X10'3 (0-0.9); MONOCYTES % (AUTO) 3.1 % (2-12); NEUTROPHILS # (AUTO) 16.4 X10'3 (1.8-7.7); NEUTROPHILS % (AUTO) 89.1 % (42-75); PLATELET COUNT 279 X10'3 (140-440); RED BLOOD COUNT 3.19 X10'6 (4.20-5.60); WHITE BLOOD COUNT 18.4 X10'3 (4.5-11.0)
[2018-02-06 08:38] LABS: ALANINE AMINOTRANSFERASE 12 U/L (12-78); ALBUMIN 1.8 G/DL (3.4-5.0); ALBUMIN/GLOBULIN RATIO 0.5 (1.1-1.5); ALKALINE PHOSPHATASE 55 IU/L (46-116); ANION GAP 4 (8-16); ASPARTATE AMINO TRANSFERASE 13 U/L (10-37); BILIRUBIN,TOTAL 0.5 MG/DL (0.1-1.0); BLOOD UREA NITROGEN 12 MG/DL (7-18); BUN/CREATININE RATIO 21.1 (6.6-38.0); CALCIUM 8.2 MG/DL (8.5-10.1); CHLORIDE 103 MMOL/L (99-107); CREATININE 0.57 MG/DL (0.40-0.90); GLUCOSE 129 MG/DL (70-104); MAGNESIUM 1.5 MG/DL (1.5-2.4); POTASSIUM 4.3 MMOL/L (3.5-5.1); SODIUM 138 MMOL/L (135-145); TOTAL CARBON DIOXIDE 30.8 MMOL/L (24-32); TOTAL PROTEIN 5.6 G/DL (6.4-8.2); eGFR > 90 ML/MIN
[2018-02-06] MEDS: vancomycin/NS 1 GM ADD-VANTAGE 250 ML IV SCH ×2 (09:56→21:06)
[2018-02-06 10:57] LABS: TOTAL CELLS COUNTED 100
[2018-02-06 10:58] LABS: ANISOCYTOSIS 1+; PLATELET ESTIMATE NORMAL; POLYCHROMASIA 1+
[2018-02-06] MEDS: buPROPion SR 150mg tablet PO SCH (21:00)
[2018-02-06] MEDS: losartan 50mg tablet PO SCH (21:07)
[2018-02-06] MEDS: Potassium Cl inj 40 MEQ in dextrose 5%-water 980 ML IV SCH (23:19)
[2018-02-07] VITALS (24 sets, daily range): BP systolic 120–176; BP diastolic 51–91
[2018-02-07 03:50] LABS: ABG BASE EXCESS 3.1 mmol/L (-2.0-3.0); ABG HCO3 27.1 mmol/L (22.0-26.0); ABG OXYGEN SATURATION 91.2 % (95-98); ABG PCO2 (T) 39.1 mmHg (32.0-45.0); ABG PH (T) 7.459 (7.350-7.450); ABG PO2 (T) 60.3 mmHg (83-108); ALLEN'S TEST Positive; FCOHb 0.4 % (0.5-1.5); FMetHb 0.3 % (0.3-1.12); FO2Hb 90.6 % (94-100); MINUTE VOLUME 7 L/min; PEEP 5 cm H2O; RESPIRATORY RATE (OBSERVED) 18 b/min; TOTAL HEMOGLOBIN 9.9 G/dl (12.0-16.0)
[2018-02-07] MEDS: BUDESONIDE 0.25 MG/2 ML AMPUL.NEB IH SCH ×2 (08:24→19:28)
[2018-02-07] MEDS: albuterol 2.5 MG/3 ML nebule NEB SCH ×4 (08:25→19:28)
[2018-02-07] MEDS: methylnaltrexone br 12mg/0.6ml inj***SubQ only SQ SCH (08:41)
[2018-02-07] MEDS: amiodarone 200mg tablet PO SCH ×2 (08:41→20:41)
[2018-02-07] MEDS: lactobacillus rhamnosus 10,000 MMU CELLS/CAPSULE PO SCH ×2 (08:41→20:41)
[2018-02-07] MEDS: ferrous sulfate 325mg tablet PO SCH ×2 (08:41→20:41)
[2018-02-07] MEDS: vancomycin/NS 1 GM ADD-VANTAGE 250 ML IV SCH ×2 (08:41→20:40)
[2018-02-07] MEDS: pantoprazole 40 MG vial IV SCH (08:41)
[2018-02-07] MEDS: multivitamins, therapeutics tablet PO SCH (08:42)
[2018-02-07] MEDS: enoxaparin 40mg/0.4ml syringe SQ SCH (08:42)
[2018-02-07] MEDS: levoTHYROXINE 100mcg tablet PO SCH (08:42)
[2018-02-07] MEDS: pramipexole 0.25mg tablet PO SCH ×2 (08:42→20:41)
[2018-02-07] MEDS: ranolazine 500mg SR tablet (Q12H) PO SCH ×2 (08:42→20:41)
[2018-02-07 11:34] LABS: BASOPHILS % (AUTO) 0 % (0-1); EOSINOPHILS # (AUTO) 0.6 X10'3 (0-0.9); HEMATOCRIT 29.2 % (35.0-45.0); HEMOGLOBIN 9.5 g/dl (12.0-16.0); LYMPHOCYTES % (AUTO) 5.3 % (21-51); MEAN CORPUSCULAR HEMOGLOBIN 28.6 PG (27.0-31.0); MEAN CORPUSCULAR HGB CONC 32.6 % (33.0-36.5); MEAN CORPUSCULAR VOLUME 87.6 FL (78-98); MEAN PLATELET VOLUME 6.6 FL (7.4-10.4); MONOCYTES # (AUTO) 0.6 X10'3 (0-0.9); MONOCYTES % (AUTO) 3.1 % (2-12); NEUTROPHILS # (AUTO) 16.9 X10'3 (1.8-7.7); NEUTROPHILS % (AUTO) 88.6 % (42-75); PLATELET COUNT 323 X10'3 (140-440); RED BLOOD COUNT 3.33 X10'6 (4.20-5.60); RED CELL DISTRIBUTION WIDTH 15.8 % (11.5-14.5); WHITE BLOOD COUNT 19.1 X10'3 (4.5-11.0)
[2018-02-07 11:58] LABS: TOTAL CELLS COUNTED 100
[2018-02-07 11:59] LABS: ANISOCYTOSIS FEW; PLATELET ESTIMATE NORMAL
[2018-02-07 12:03] LABS: ALANINE AMINOTRANSFERASE 11 U/L (12-78); ALBUMIN 1.8 G/DL (3.4-5.0); ALBUMIN/GLOBULIN RATIO 0.4 (1.1-1.5); ALKALINE PHOSPHATASE 68 IU/L (46-116); ANION GAP 6 (8-16); ASPARTATE AMINO TRANSFERASE 17 U/L (10-37); BILIRUBIN,TOTAL 0.6 MG/DL (0.1-1.0); BLOOD UREA NITROGEN 9 MG/DL (7-18); BUN/CREATININE RATIO 13.8 (6.6-38.0); CALCIUM 8.7 MG/DL (8.5-10.1); CHLORIDE 101 MMOL/L (99-107); CREATININE 0.65 MG/DL (0.40-0.90); GLUCOSE 116 MG/DL (70-104); POTASSIUM 4.1 MMOL/L (3.5-5.1); SODIUM 136 MMOL/L (135-145); TOTAL PROTEIN 6.1 G/DL (6.4-8.2); eGFR 88 ML/MIN
[2018-02-07] MEDS: Potassium Cl inj 40 MEQ in dextrose 5%-water 980 ML IV SCH ×2 (15:30→20:40)
[2018-02-07] MEDS ORDERED: LIDOcaine 5% patch TP ONE (15:50)
[2018-02-07] MEDS: buPROPion SR 150mg tablet PO SCH (20:41)
[2018-02-07] MEDS: losartan 50mg tablet PO SCH (20:41)
[2018-02-07] MEDS: ondansetron/PF 4mg/2ml inj IV PRN (21:36)
[2018-02-08] VITALS (22 sets, daily range): BP systolic 90–151; BP diastolic 43–90
[2018-02-08 05:37] LABS: BASOPHILS % (AUTO) 0.1 % (0-1); EOSINOPHILS # (AUTO) 0.5 X10'3 (0-0.9); EOSINOPHILS % (AUTO) 3.3 % (0-6); HEMOGLOBIN 8.3 g/dl (12.0-16.0); LYMPHOCYTES # (AUTO) 0.8 X10'3 (1.1-4.8); LYMPHOCYTES % (AUTO) 5.3 % (21-51); MEAN CORPUSCULAR HEMOGLOBIN 28.2 PG (27.0-31.0); MEAN CORPUSCULAR HGB CONC 32.1 % (33.0-36.5); MEAN CORPUSCULAR VOLUME 87.8 FL (78-98); MEAN PLATELET VOLUME 6.3 FL (7.4-10.4); MONOCYTES # (AUTO) 0.6 X10'3 (0-0.9); MONOCYTES % (AUTO) 3.7 % (2-12); NEUTROPHILS # (AUTO) 13.6 X10'3 (1.8-7.7); NEUTROPHILS % (AUTO) 87.6 % (42-75); PLATELET COUNT 342 X10'3 (140-440); RED BLOOD COUNT 2.96 X10'6 (4.20-5.60); RED CELL DISTRIBUTION WIDTH 16.1 % (11.5-14.5); WHITE BLOOD COUNT 15.6 X10'3 (4.5-11.0)
[2018-02-08 06:11] LABS: ALANINE AMINOTRANSFERASE 13 U/L (12-78); ALBUMIN 1.8 G/DL (3.4-5.0); ALBUMIN/GLOBULIN RATIO 0.4 (1.1-1.5); ALKALINE PHOSPHATASE 60 IU/L (46-116); ANION GAP 6 (8-16); ASPARTATE AMINO TRANSFERASE 16 U/L (10-37); BILIRUBIN,TOTAL 0.6 MG/DL (0.1-1.0); BLOOD UREA NITROGEN 9 MG/DL (7-18); CALCIUM 8.8 MG/DL (8.5-10.1); CHLORIDE 100 MMOL/L (99-107); CREATININE 0.75 MG/DL (0.40-0.90); GLUCOSE 111 MG/DL (70-104); MAGNESIUM 1.6 MG/DL (1.5-2.4); PHOSPHORUS 3.6 MG/DL (2.3-4.5); PREALBUMIN 8.9 MG/DL (19-36); SODIUM 137 MMOL/L (135-145); TOTAL CARBON DIOXIDE 30.9 MMOL/L (24-32); TOTAL PROTEIN 6.1 G/DL (6.4-8.2); eGFR 74 ML/MIN
[2018-02-08] MEDS: albuterol 2.5 MG/3 ML nebule NEB SCH ×4 (07:02→19:21)
[2018-02-08] MEDS: BUDESONIDE 0.25 MG/2 ML AMPUL.NEB IH SCH ×2 (07:02→19:21)
[2018-02-08] MEDS: pantoprazole 40 MG vial IV SCH (09:17)
[2018-02-08] MEDS: lactobacillus rhamnosus 10,000 MMU CELLS/CAPSULE PO SCH ×2 (09:17→19:56)
[2018-02-08] MEDS: amiodarone 200mg tablet PO SCH ×2 (09:17→19:56)
[2018-02-08] MEDS: ranolazine 500mg SR tablet (Q12H) PO SCH ×2 (09:18→19:57)
[2018-02-08] MEDS: enoxaparin 40mg/0.4ml syringe SQ SCH (09:18)
[2018-02-08] MEDS: pramipexole 0.25mg tablet PO SCH ×2 (09:18→19:57)
[2018-02-08] MEDS: levoTHYROXINE 100mcg tablet PO SCH (09:18)
[2018-02-08] MEDS: vancomycin/NS 1 GM ADD-VANTAGE 250 ML IV SCH (09:19)
[2018-02-08] MEDS: LIDOcaine 5% patch TP SCH (09:19)
[2018-02-08] MEDS: ferrous sulfate 325mg tablet PO SCH ×2 (09:29→19:56)
[2018-02-08] MEDS: multivitamins, therapeutics tablet PO SCH (09:29)
[2018-02-08] MEDS ORDERED: vancomycin inj 1,250 MG in normal saline 250ml IV soln 250 ML IV SCH (11:00)
[2018-02-08] MEDS: vancomycin inj. 750 MG in normal saline 250ml IV soln 250 ML IV SCH (19:50)
[2018-02-08] MEDS: losartan 50mg tablet PO SCH (19:51)
[2018-02-08] MEDS: buPROPion SR 150mg tablet PO SCH (19:58)
[2018-02-08] MEDS ORDERED: VANCOMYCIN LEVEL IV NR (20:30)
[2018-02-09] VITALS (23 sets, daily range): BP systolic 70–146; BP diastolic 38–88
[2018-02-09 05:30] LABS: BASOPHILS % (AUTO) 0.1 % (0-1); EOSINOPHILS # (AUTO) 0.4 X10'3 (0-0.9); EOSINOPHILS % (AUTO) 2.8 % (0-6); HEMATOCRIT 23.9 % (35.0-45.0); HEMOGLOBIN 7.8 g/dl (12.0-16.0); LYMPHOCYTES # (AUTO) 0.8 X10'3 (1.1-4.8); LYMPHOCYTES % (AUTO) 6.2 % (21-51); MEAN CORPUSCULAR HEMOGLOBIN 28.8 PG (27.0-31.0); MEAN CORPUSCULAR HGB CONC 32.6 % (33.0-36.5); MEAN CORPUSCULAR VOLUME 88.2 FL (78-98); MEAN PLATELET VOLUME 6.4 FL (7.4-10.4); MONOCYTES # (AUTO) 0.6 X10'3 (0-0.9); MONOCYTES % (AUTO) 5.2 % (2-12); NEUTROPHILS # (AUTO) 10.6 X10'3 (1.8-7.7); NEUTROPHILS % (AUTO) 85.7 % (42-75); PLATELET COUNT 336 X10'3 (140-440); RED BLOOD COUNT 2.71 X10'6 (4.20-5.60); RED CELL DISTRIBUTION WIDTH 16.1 % (11.5-14.5); WHITE BLOOD COUNT 12.4 X10'3 (4.5-11.0)
[2018-02-09 05:31] LABS: POTASSIUM 4.4 MMOL/L (3.5-5.1)
[2018-02-09] MEDS: albuterol 2.5 MG/3 ML nebule NEB SCH ×4 (06:43→19:05)
[2018-02-09] MEDS: BUDESONIDE 0.25 MG/2 ML AMPUL.NEB IH SCH ×2 (06:43→19:05)
[2018-02-09] MEDS: LIDOcaine 5% patch TP SCH (07:34)
[2018-02-09] MEDS: enoxaparin 40mg/0.4ml syringe SQ SCH (07:35)
[2018-02-09] MEDS: pantoprazole 40 MG vial IV SCH (07:36)
[2018-02-09] MEDS: methylnaltrexone br 12mg/0.6ml inj***SubQ only SQ SCH (07:36)
[2018-02-09] MEDS: lactobacillus rhamnosus 10,000 MMU CELLS/CAPSULE PO SCH ×2 (07:36→21:48)
[2018-02-09] MEDS: multivitamins, therapeutics tablet PO SCH (07:36)
[2018-02-09] MEDS: ferrous sulfate 325mg tablet PO SCH ×2 (07:36→21:48)
[2018-02-09] MEDS: levoTHYROXINE 100mcg tablet PO SCH (07:36)
[2018-02-09] MEDS: pramipexole 0.25mg tablet PO SCH (07:36)
[2018-02-09] MEDS: ranolazine 500mg SR tablet (Q12H) PO SCH ×2 (07:36→21:49)
[2018-02-09] MEDS: amiodarone 200mg tablet PO SCH ×2 (08:00→21:48)
[2018-02-09 08:06] LABS: ABG BASE EXCESS 4.8 mmol/L (-2.0-3.0); ABG HCO3 30.4 mmol/L (22.0-26.0); ABG OXYGEN SATURATION 87.3 % (95-98); ABG PCO2 (T) 50.7 mmHg (32.0-45.0); ABG PH (T) 7.396 (7.350-7.450); ABG PO2 (T) 53.9 mmHg (83-108); ALLEN'S TEST Positive; FCOHb 0.4 % (0.5-1.5); FLOW 5 L/min; FMetHb 0.1 % (0.3-1.12); FO2Hb 86.9 % (94-100); TOTAL HEMOGLOBIN 8.9 G/dl (12.0-16.0)
[2018-02-09 08:14] LABS: ALBUMIN 1.8 G/DL (3.4-5.0); ANION GAP 6 (8-16); BLOOD UREA NITROGEN 14 MG/DL (7-18); BUN/CREATININE RATIO 14.3 (6.6-38.0); CALCIUM 8.7 MG/DL (8.5-10.1); CHLORIDE 100 MMOL/L (99-107); CREATININE 0.98 MG/DL (0.40-0.90); GLUCOSE 103 MG/DL (70-104); SODIUM 136 MMOL/L (135-145); TOTAL CARBON DIOXIDE 30.2 MMOL/L (24-32); VANCOMYCIN,RANDOM 28.4 UG/ML; eGFR 55 ML/MIN
[2018-02-09] MEDS: vancomycin inj. 750 MG in normal saline 250ml IV soln 250 ML IV SCH (08:31)
[2018-02-09] MEDS ORDERED: albumin (human) 25% 100ml IV 100 ML IV ONE (08:40)
[2018-02-09 10:53] LABS: MAGNESIUM 1.6 MG/DL (1.5-2.4); PHOSPHORUS 4.4 MG/DL (2.3-4.5)
[2018-02-09 10:55] LABS: ABG HCO3 30.7 mmol/L (22.0-26.0); ABG OXYGEN SATURATION 91.9 % (95-98); ABG PCO2 (T) 52.1 mmHg (32.0-45.0); ABG PH (T) 7.388 (7.350-7.450); ABG PO2 (T) 65.3 mmHg (83-108); ALLEN'S TEST Positive; FCOHb 0.8 % (0.5-1.5); FMetHb 0.1 % (0.3-1.12); FO2Hb 91.1 % (94-100); TOTAL HEMOGLOBIN 8.3 G/dl (12.0-16.0)
[2018-02-09] MEDS ORDERED: vancomycin inj 1,250 MG in normal saline 250ml IV soln 250 ML IV PRN (13:20)
[2018-02-09] MEDS: albumin (human) 25% 100ml IV 100 ML IV SCH ×2 (15:57→23:08)
[2018-02-09] MEDS: lactulose 20gm/30ml cup PO SCH (15:57)
[2018-02-09 19:44] LABS: SODIUM,URINE RANDOM < 15 MEQ/L
[2018-02-09 20:26] LABS: OSMOLALITY UA 170 MOSM/K (50-1400)
[2018-02-10] VITALS (23 sets, daily range): BP systolic 97–146; BP diastolic 42–73
[2018-02-10] MEDS: acetaminophen 325mg tablet PO PRN ×2 (01:05→21:20)
[2018-02-10] MEDS: VANCOMYCIN LEVEL IV SCH (03:00)
[2018-02-10 05:31] LABS: BASOPHILS % (AUTO) 0.1 % (0-1); EOSINOPHILS # (AUTO) 0.3 X10'3 (0-0.9); EOSINOPHILS % (AUTO) 2.5 % (0-6); HEMATOCRIT 23.6 % (35.0-45.0); HEMOGLOBIN 7.7 g/dl (12.0-16.0); LYMPHOCYTES # (AUTO) 0.8 X10'3 (1.1-4.8); LYMPHOCYTES % (AUTO) 7.3 % (21-51); MEAN CORPUSCULAR HGB CONC 32.9 % (33.0-36.5); MEAN CORPUSCULAR VOLUME 88.2 FL (78-98); MEAN PLATELET VOLUME 6.4 FL (7.4-10.4); MONOCYTES # (AUTO) 0.4 X10'3 (0-0.9); NEUTROPHILS # (AUTO) 9.7 X10'3 (1.8-7.7); NEUTROPHILS % (AUTO) 86.1 % (42-75); PLATELET COUNT 353 X10'3 (140-440); RED BLOOD COUNT 2.67 X10'6 (4.20-5.60); RED CELL DISTRIBUTION WIDTH 16.3 % (11.5-14.5); WHITE BLOOD COUNT 11.2 X10'3 (4.5-11.0)
[2018-02-10 05:40] LABS: ALANINE AMINOTRANSFERASE 13 U/L (12-78); ALBUMIN 2.7 G/DL (3.4-5.0); ALBUMIN/GLOBULIN RATIO 0.6 (1.1-1.5); ALKALINE PHOSPHATASE 59 IU/L (46-116); ANION GAP 7 (8-16); ASPARTATE AMINO TRANSFERASE 16 U/L (10-37); BILIRUBIN,TOTAL 0.6 MG/DL (0.1-1.0); BLOOD UREA NITROGEN 18 MG/DL (7-18); BUN/CREATININE RATIO 12.3 (6.6-38.0); CALCIUM 9.1 MG/DL (8.5-10.1); CHLORIDE 100 MMOL/L (99-107); CREATININE 1.46 MG/DL (0.40-0.90); GLUCOSE 98 MG/DL (70-104); POTASSIUM 4.2 MMOL/L (3.5-5.1); SODIUM 136 MMOL/L (135-145); TOTAL CARBON DIOXIDE 28.9 MMOL/L (24-32); VANCOMYCIN,RANDOM 28.2 UG/ML; eGFR 34 ML/MIN
[2018-02-10] MEDS: albuterol 2.5 MG/3 ML nebule NEB SCH ×3 (07:08→19:18)
[2018-02-10] MEDS: BUDESONIDE 0.25 MG/2 ML AMPUL.NEB IH SCH ×2 (07:08→19:18)
[2018-02-10 07:28] LABS: MAGNESIUM 1.8 MG/DL (1.5-2.4); PHOSPHORUS 4.8 MG/DL (2.3-4.5)
[2018-02-10] MEDS: albumin (human) 25% 100ml IV 100 ML IV SCH ×2 (08:53→21:14)
[2018-02-10] MEDS: enoxaparin 40mg/0.4ml syringe SQ SCH (08:54)
[2018-02-10] MEDS: pantoprazole 40 MG vial IV SCH (08:54)
[2018-02-10] MEDS: levoTHYROXINE 100mcg tablet PO SCH (08:55)
[2018-02-10] MEDS: LIDOcaine 5% patch TP SCH (08:55)
[2018-02-10] MEDS: multivitamins, therapeutics tablet PO SCH (08:55)
[2018-02-10] MEDS: ranolazine 500mg SR tablet (Q12H) PO SCH ×2 (08:55→21:20)
[2018-02-10] MEDS: lactobacillus rhamnosus 10,000 MMU CELLS/CAPSULE PO SCH ×2 (08:55→21:21)
[2018-02-10] MEDS: ferrous sulfate 325mg tablet PO SCH ×2 (08:55→21:21)
[2018-02-10] MEDS: lactulose 20gm/30ml cup PO SCH ×4 (08:57→23:39)
[2018-02-10] MEDS: lactose-reduced food (Ensure High Protein) 237ml bottle PO SCH ×2 (13:29→18:00)
[2018-02-10] MEDS: ipratropium/albuterol 3ml nebule NEB PRN (14:58)
[2018-02-10] MEDS: furosemide 20 MG/2 ML vial IV SCH (21:14)
[2018-02-10] MEDS: ondansetron/PF 4mg/2ml inj IV PRN (22:22)
[2018-02-11] VITALS (23 sets, daily range): BP systolic 86–166; BP diastolic 43–86
[2018-02-11] MEDS: VANCOMYCIN LEVEL IV SCH (03:00)
[2018-02-11 05:19] LABS: BASOPHILS % (AUTO) 0.1 % (0-1); EOSINOPHILS # (AUTO) 0.3 X10'3 (0-0.9); EOSINOPHILS % (AUTO) 3.4 % (0-6); HEMOGLOBIN 7.1 g/dl (12.0-16.0); LYMPHOCYTES # (AUTO) 0.7 X10'3 (1.1-4.8); MEAN CORPUSCULAR HEMOGLOBIN 28.5 PG (27.0-31.0); MEAN CORPUSCULAR HGB CONC 32.4 % (33.0-36.5); MEAN PLATELET VOLUME 6.2 FL (7.4-10.4); MONOCYTES # (AUTO) 0.4 X10'3 (0-0.9); MONOCYTES % (AUTO) 3.8 % (2-12); NEUTROPHILS # (AUTO) 8.2 X10'3 (1.8-7.7); NEUTROPHILS % (AUTO) 85.7 % (42-75); PLATELET COUNT 358 X10'3 (140-440); RED BLOOD COUNT 2.48 X10'6 (4.20-5.60); RED CELL DISTRIBUTION WIDTH 15.4 % (11.5-14.5); WHITE BLOOD COUNT 9.5 X10'3 (4.5-11.0)
[2018-02-11 05:42] LABS: HEMATOCRIT 21.9 % (35.0-45.0)
[2018-02-11 05:43] LABS: ALANINE AMINOTRANSFERASE 13 U/L (12-78); ALBUMIN 3.1 G/DL (3.4-5.0); ALBUMIN/GLOBULIN RATIO 0.8 (1.1-1.5); ALKALINE PHOSPHATASE 48 IU/L (46-116); ANION GAP 7 (8-16); ASPARTATE AMINO TRANSFERASE 13 U/L (10-37); BILIRUBIN,TOTAL 0.5 MG/DL (0.1-1.0); BLOOD UREA NITROGEN 19 MG/DL (7-18); BUN/CREATININE RATIO 11.6 (6.6-38.0); CALCIUM 9.5 MG/DL (8.5-10.1); CHLORIDE 102 MMOL/L (99-107); CREATININE 1.64 MG/DL (0.40-0.90); GLUCOSE 106 MG/DL (70-104); POTASSIUM 3.6 MMOL/L (3.5-5.1); SODIUM 140 MMOL/L (135-145); TOTAL CARBON DIOXIDE 30.7 MMOL/L (24-32); TOTAL PROTEIN 6.8 G/DL (6.4-8.2); eGFR 30 ML/MIN
[2018-02-11] MEDS: BUDESONIDE 0.25 MG/2 ML AMPUL.NEB IH SCH ×2 (07:49→19:03)
[2018-02-11] MEDS: albuterol 2.5 MG/3 ML nebule NEB SCH ×4 (07:49→19:04)
[2018-02-11] MEDS: multivitamins, therapeutics tablet PO SCH (08:07)
[2018-02-11] MEDS: levoTHYROXINE 100mcg tablet PO SCH (08:07)
[2018-02-11] MEDS: pantoprazole 40 MG vial IV SCH (08:07)
[2018-02-11] MEDS: lactobacillus rhamnosus 10,000 MMU CELLS/CAPSULE PO SCH ×2 (08:08→19:38)
[2018-02-11] MEDS: ferrous sulfate 325mg tablet PO SCH ×2 (08:08→19:38)
[2018-02-11] MEDS: ranolazine 500mg SR tablet (Q12H) PO SCH ×2 (08:08→19:38)
[2018-02-11] MEDS: lactulose 20gm/30ml cup PO SCH (08:08)
[2018-02-11] MEDS: albumin (human) 25% 100ml IV 100 ML IV SCH ×2 (08:18→19:38)
[2018-02-11] MEDS: lactose-reduced food (Ensure High Protein) 237ml bottle PO SCH ×3 (08:19→18:41)
[2018-02-11] MEDS: furosemide 20 MG/2 ML vial IV SCH ×2 (09:00→19:38)
[2018-02-11] MEDS: LIDOcaine 5% patch TP SCH (09:00)
[2018-02-11] MEDS: enoxaparin 40mg/0.4ml syringe SQ SCH (15:10)
[2018-02-12] VITALS (15 sets, daily range): BP systolic 87–135; BP diastolic 41–62
[2018-02-12] MEDS: VANCOMYCIN LEVEL IV SCH (03:00)
[2018-02-12 05:30] LABS: BASOPHILS % (AUTO) 0.3 % (0-1); EOSINOPHILS # (AUTO) 0.3 X10'3 (0-0.9); EOSINOPHILS % (AUTO) 3.8 % (0-6); HEMATOCRIT 22.4 % (35.0-45.0); HEMOGLOBIN 7.3 g/dl (12.0-16.0); LYMPHOCYTES # (AUTO) 0.7 X10'3 (1.1-4.8); MEAN CORPUSCULAR HEMOGLOBIN 28.5 PG (27.0-31.0); MEAN CORPUSCULAR HGB CONC 32.4 % (33.0-36.5); MEAN PLATELET VOLUME 6.3 FL (7.4-10.4); MONOCYTES # (AUTO) 0.4 X10'3 (0-0.9); MONOCYTES % (AUTO) 4.8 % (2-12); NEUTROPHILS # (AUTO) 6.6 X10'3 (1.8-7.7); NEUTROPHILS % (AUTO) 82.1 % (42-75); PLATELET COUNT 365 X10'3 (140-440); RED BLOOD COUNT 2.54 X10'6 (4.20-5.60); RED CELL DISTRIBUTION WIDTH 15.9 % (11.5-14.5); WHITE BLOOD COUNT 8.1 X10'3 (4.5-11.0)
[2018-02-12 05:40] LABS: ALANINE AMINOTRANSFERASE 12 U/L (12-78); ALBUMIN 3.2 G/DL (3.4-5.0); ALBUMIN/GLOBULIN RATIO 0.8 (1.1-1.5); ALKALINE PHOSPHATASE 46 IU/L (46-116); ANION GAP 7 (8-16); ASPARTATE AMINO TRANSFERASE 11 U/L (10-37); BILIRUBIN,TOTAL 0.6 MG/DL (0.1-1.0); BLOOD UREA NITROGEN 24 MG/DL (7-18); BUN/CREATININE RATIO 12.8 (6.6-38.0); CALCIUM 9.4 MG/DL (8.5-10.1); CHLORIDE 101 MMOL/L (99-107); CREATININE 1.88 MG/DL (0.40-0.90); GLUCOSE 95 MG/DL (70-104); MAGNESIUM 1.8 MG/DL (1.5-2.4); PHOSPHORUS 3.8 MG/DL (2.3-4.5); POTASSIUM 3.7 MMOL/L (3.5-5.1); SODIUM 140 MMOL/L (135-145); TOTAL CARBON DIOXIDE 32.5 MMOL/L (24-32); TOTAL PROTEIN 7.2 G/DL (6.4-8.2); VANCOMYCIN,RANDOM 16.5 UG/ML; eGFR 26 ML/MIN
[2018-02-12] MEDS: lactose-reduced food (Ensure High Protein) 237ml bottle PO SCH ×2 (08:00→13:00)
[2018-02-12] MEDS ORDERED: epoetin 20,000 units/ml inj SQ ONE (08:00)
[2018-02-12] MEDS: lactobacillus rhamnosus 10,000 MMU CELLS/CAPSULE PO SCH (08:04)
[2018-02-12] MEDS: levoTHYROXINE 100mcg tablet PO SCH (08:04)
[2018-02-12] MEDS: ranolazine 500mg SR tablet (Q12H) PO SCH (08:04)
[2018-02-12] MEDS: multivitamins, therapeutics tablet PO SCH (08:04)
[2018-02-12] MEDS: pantoprazole 40 MG vial IV SCH (08:04)
[2018-02-12] MEDS: ferrous sulfate 325mg tablet PO SCH (08:04)
[2018-02-12] MEDS: furosemide 20 MG/2 ML vial IV SCH (08:04)
[2018-02-12] MEDS: enoxaparin 40mg/0.4ml syringe SQ SCH (08:05)
[2018-02-12] MEDS: LIDOcaine 5% patch TP SCH (08:06)
[2018-02-12] MEDS: albumin (human) 25% 100ml IV 100 ML IV SCH (08:06)
[2018-02-12] MEDS: albuterol 2.5 MG/3 ML nebule NEB SCH ×3 (08:07→15:09)
[2018-02-12] MEDS: BUDESONIDE 0.25 MG/2 ML AMPUL.NEB IH SCH (08:07)
== END 2018-02-12 16:00 | DRG 853 ==
LOC: ER 08:43 → ED HOLD 13:36 → ORTHO 4S 15:40 → PCU 3S 01-30 01:30 → ICU 2S 01-31 18:55
PROVIDERS: ADMIT Family Medicine
PROC: 5A09357 Assistance with Respiratory Ventilation, Less than 24 Consecutive Hours, Continuous Positive Airway Pressure (ICD-10-PCS; 2018-01-30)
PROC: 03HY32Z Insertion of Monitoring Device into Upper Artery, Percutaneous Approach (ICD-10-PCS; 2018-01-31)
PROC: 05HM33Z Insertion of Infusion Device into Right Internal Jugular Vein, Percutaneous Approach (ICD-10-PCS; 2018-01-31)
PROC: B543ZZA Ultrasonography of Right Jugular Veins, Guidance (ICD-10-PCS; 2018-01-31)
PROC: 0K9N0ZZ Drainage of Right Hip Muscle, Open Approach (ICD-10-PCS; principal; 2018-01-31 17:25)
PROC: 5A09357 Assistance with Respiratory Ventilation, Less than 24 Consecutive Hours, Continuous Positive Airway Pressure (ICD-10-PCS; 2018-02-01)
PROC: 0DTJ0ZZ Resection of Appendix, Open Approach (ICD-10-PCS; 2018-02-02)
PROC: 0W9J0ZZ Drainage of Pelvic Cavity, Open Approach (ICD-10-PCS; 2018-02-02)
PROC: 5A1955Z Respiratory Ventilation, Greater than 96 Consecutive Hours (ICD-10-PCS; 2018-02-02)
PROC: 5A09357 Assistance with Respiratory Ventilation, Less than 24 Consecutive Hours, Continuous Positive Airway Pressure (ICD-10-PCS; 2018-02-07)
PROC: 5A09357 Assistance with Respiratory Ventilation, Less than 24 Consecutive Hours, Continuous Positive Airway Pressure (ICD-10-PCS; 2018-02-09)
PROC: 5A09357 Assistance with Respiratory Ventilation, Less than 24 Consecutive Hours, Continuous Positive Airway Pressure (ICD-10-PCS; 2018-02-10)
DX: A41.9 Sepsis, unspecified organism (principal); K68.12 Psoas muscle abscess; K68.19 Other retroperitoneal abscess; J96.00 Acute respiratory failure, unspecified whether with hypoxia or hypercapnia; R65.21 Severe sepsis with septic shock; N17.0 Acute kidney failure with tubular necrosis; E46 Unspecified protein-calorie malnutrition; M48.56XA Collapsed vertebra, not elsewhere classified, lumbar region, initial encounter for fracture; I47.1 Supraventricular tachycardia; E87.1 Hypo-osmolality and hyponatremia; M62.82 Rhabdomyolysis; J44.9 Chronic obstructive pulmonary disease, unspecified; E66.9 Obesity, unspecified; E03.9 Hypothyroidism, unspecified; E78.5 Hyperlipidemia, unspecified; G47.33 Obstructive sleep apnea (adult) (pediatric); I10 Essential (primary) hypertension; K57.90 Diverticulosis of intestine, part unspecified, without perforation or abscess without bleeding; M81.0 Age-related osteoporosis without current pathological fracture; N73.9 Female pelvic inflammatory disease, unspecified; R62.7 Adult failure to thrive; R21 Rash and other nonspecific skin eruption; M54.9 Dorsalgia, unspecified; R76.11 Nonspecific reaction to tuberculin skin test without active tuberculosis; G89.29 Other chronic pain; R74.8 Abnormal levels of other serum enzymes; B95.62 Methicillin resistant Staphylococcus aureus infection as the cause of diseases classified elsewhere; R79.89 Other specified abnormal findings of blood chemistry; R29.6 Repeated falls; W18.30XA Fall on same level, unspecified, initial encounter; Z66 Do not resuscitate; Z90.49 Acquired absence of other specified parts of digestive tract; Z90.710 Acquired absence of both cervix and uterus; Z99.81 Dependence on supplemental oxygen; Z88.8 Allergy status to other drugs, medicaments and biological substances; Z88.1 Allergy status to other antibiotic agents; Z79.899 Other long term (current) drug therapy; Z86.711 Personal history of pulmonary embolism; Z86.718 Personal history of other venous thrombosis and embolism; Z87.891 Personal history of nicotine dependence; Z81.8 Family history of other mental and behavioral disorders; Z82.49 Family history of ischemic heart disease and other diseases of the circulatory system; Z83.3 Family history of diabetes mellitus; Z68.34 Body mass index [BMI] 34.0-34.9, adult; Y93.89 Activity, other specified; Y92.89 Other specified places as the place of occurrence of the external cause; Y99.8 Other external cause status
CPT/HCPCS: 36415; 36600; 71045; 71250; 72148; 72192; 72195; 73502; 74018; 74176; 80048; 80053; 80061; 80202; 81001; 82570; 82803; 82948; 83605; 83735; 83880; 83935; 84100; 84133; 84134; 84156; 84300; 84439; 84443; 84560; 85018; 85025; 85610; 85730; 86885; 86900; 86901; 87040; 87070; 87075; 87077; 87088; 87186; 92616; 94002; 94003; 94640; 94660; 94760; 96374; 96375; 97110; 97116; 97161; 97530; 99285; A6251; A6253; A6446; A6449; A7000; C9113; G0378; J0282; J0692; J0696; J0885; J1100; J1170; J1644; J1650; J1940; J2001; J2060; J2250; J2270; J2310; J2405; J2704; J3010; J3370; J3475; J3480; J3490; J7030; J7070; J7120; P9045; P9047

== ENCOUNTER 2018-03-07 11:01 | Outpatient (CLI) | payer OTHER ==
[~2018-03-07 11:01] MED LIST changes: -ASPI81TA52 PO; -FLUO20CA39 PO; -TERI2.4P SUBCUT; -ZOLP5TAB8 PO; +iohexol 300mg/ml 100ml inj. ONE
== END 2018-03-07 23:59 | disposition home or self-care (01) ==
LOC: 64 CT 11:01
PROVIDERS: ATTEND Internal Medicine Infectious Disease
DX: K68.12 Psoas muscle abscess (principal); M60.08 Infective myositis, other site; J44.9 Chronic obstructive pulmonary disease, unspecified; I10 Essential (primary) hypertension; Z90.710 Acquired absence of both cervix and uterus; Z87.891 Personal history of nicotine dependence
CPT/HCPCS: 72193; Q9967

== ENCOUNTER 2018-03-24 08:00 | Inpatient (IN) | payer MEDICARE, MEDICAID, OTHER | END 2018-04-10 10:50 | disposition short-term general hospital (02) | LOC: ER 08:00 → ED HOLD 11:11 → ORTHO 4S 15:07 | DX: I12.9 Hypertensive chronic kidney disease with stage 1 through stage 4 chronic kidney disease, or unspecified chronic kidney disease (principal); N17.9 Acute kidney failure, unspecified; N18.3 Chronic kidney disease, stage 3 (moderate); J44.9 Chronic obstructive pulmonary disease, unspecified ==